=== PATIENT | female | born 1965 | race Caucasian/White ===

== ENCOUNTER → 2023-08-20 | Emergency (ER) | payer BC ==
[~2023-08-20] MED LIST: DICYCLOMINE HCL 10 MG CAP ONE; FAMOTIDINE 20 MG/2 ML VIAL IV ONE; KETOROLAC 30 MG/ML INJ ONE; LOPERAMIDE HCL 2 MG CAPSULE ONE; METOCLOPRAMIDE 10 MG/2mL INJ ONE; NA CHLORIDE 0.9% 1,000 ML ONE; ONDANSETRON 4 MG/2 ML VIAL ONE
--- OUTSIDE RECORDS SUMMARY | 2023-08-20 04:28 | XMS REPORT | Continuity of Care Document ---
Author Name Unknown Address [address] [facility] [address] [place] [address] [facility] Address [address] [facility] [address] [place] [address] Care Team Providers Care [employer] Name Role Phone JEB ARORA Primary Care Physician JEB Milan Attending Clinician Jeb Cowan MD Attending Clinician + [phone] Karen Chatman Attending Clinician [phone] Unknown, Attending Attending Clinician Unavailab KAREN Hawkins Attending Clinician Unavailable Doctor Unassigned, Provencal Attending Clinician U navailable Lab, Ang - Db Attending Clinician Unavailable Haven Fragoso Attending Clinician [phone] CYNDEE SOARES Attending Clinician Unavailable Cyndee Chadwick Attending Clinician [phone] HAVEN YBARRA Attending Clinician Unavailable ANA ANGUIANO Attending Clinician Unavailable Kanchan Bojorquez Attending Clinician [phone] Ana Arambula Attending Clinician [phone] Sherin Delgadillo RN Attending Clinician UnavailSujata Barrios Attending Clinician [phone] SUJATA FOUNTAIN Attending Clinician Unavailable LILI OLIVIA Attending Clinician Unavailable Lili Olivia MD Attending Clinician [phone] TALIB CHANG Attending Clinician Unavailjose alejandro Post PT, Ayde Attending Clinician Unavailab Walter GRANT, Dave Mack Attending Clinician [phone] DAVE SHANNON Attending Clinician UnavailJonah Hart PT, Kiara Attending Clinician Un available Yves Fernandez Attending Clinician [phone] YVES COLEMAN Attending Clinician Unavailable Ryann Nguyen Attending Clinician [phone] RYANN NGUYEN Attending Clinician Unavailable Pob, Adc Lab Main Attending Clinician UnavailJEB Méndez Admitting Clinician LILI Felton Admitting Clinician Unavailable Payers Payer Name Policy Type Policy Number Effective Date Expirati on Date Source [facility] [id number] 2017 00:00:00 Problems Condition Name Condition Details Condition Category Status Onset Date Resolution Date Last Treatment Date Treating Clinician Comments Source Hemorrhagi c cystitis Hemorrhagi c cystitis Disease Active 2021-07 00:00: 00 [facility] No known active problems No known active problems Disease [facility] Allergies, Adverse Reactions, Alerts Allergy Name Allergy Type Status Severity Reaction(s) Onset Date Inactive Date Treating Clinician Comments Source Codeine Propensi ty to adverse reaction s Active Dizziness 01-04 00:00: 00 [facility] CODEINE DRUG INGREDI Active Dizziness 01-04 00:00: 00 [facility] Social History Social Habit Start Date Stop Date Quantity Comments [facility] Alcohol Comment [place] [facility] History SDOH Alcohol Std Drinks [facility] History SDOH Alcohol Binge [facility] Alcohol intake 2023-07-17 00:00:00 2023-07-17 00:00:00 Lifetime non-drinker (finding) [facility] History of Social function 2023-05-29 00:00:00 2023-05-29 00:00:00 [facility] Exposure to SARS-CoV-2 (event) 2022-11-04 00:00:00 2022-11-14 07:28:00 Not sure [facility] Tobacco use and exposure 2022-04-26 00:00:00 2022-04-26 00:00:00 Smokeless tobacco non-user [facility] History SDOH Alcohol Frequency 2019-04-24 00:00:00 2019-04-24 00:00:00 1 [facility] Sex Ass[birth year] At 1965 00:00:00 1965 00:00:00 [facility] Smoking Status Start Date Stop Date Source Never smoked tobacco [facility] Medications Ordered Medication Name Filled Medication Name Start Date Stop Date Current Medication? Ordering Clinician Indication Dosage Frequency Signature (SIG) Comments Components Source azithromyci n 500 mg tablet 07-17 00:00: 00 Yes [id number] 500mg Take 1 tablet by mouth in the morning. [facility] azithromyci n 500 mg tablet 07-17 00:00: 00 Yes [id number] 500mg Take 1 tablet by mouth in the morning. [facility] benzonatate 200 mg capsule 2022-07 00:00: 00 07-17 05:59 :00 Yes [id number] 200mg Take 1 capsule by mouth 3 (three) times daily as needed for Cough for up to 10 days. [facility] metoprolol succinate XL 50 mg 24 hr tablet 2022-07 16:07: 05-29 00:00 :00 No 50mg Take 1 tablet by mouth in the morning. [facility] metoprolol succinate XL 50 mg 24 hr tablet 2022-07 16:07: 05-29 00:00 :00 No 50mg Take 1 tablet by mouth in the morning. [facility] metoprolol succinate XL 50 mg 24 hr tablet 2022-07 16:07: 05-29 00:00 :00 No 50mg Take 1 tablet by mouth in the morning. [facility] RABEprazole 20 mg tablet 2022-07 00:00: 00 Yes [id number] 20mg Take 1 tablet by mouth in the morning. [facility] metoprolol succinate XL 50 mg 24 hr tablet 2022-07 00:00: 00 Yes [id number] 50mg Take 1 tablet by mouth in the morning. [facility] FLUoxetine 20 mg capsule 2022-07 00:00: 00 Yes [id number] 20mg Take 1 capsule by mouth in the morning. [facility] atorvastati n 10 mg tablet 2022-07 00:00: 00 Yes [id number] 10mg Take 1 tablet by mouth at bedtime. [facility] RABEprazole 20 mg tablet 2022-07 00:00: 00 Yes [id number] 20mg Take 1 tablet by mouth in the morning. [facility] metoprolol succinate XL 50 mg 24 hr tablet 2022-07 00:00: 00 Yes [id number] 50mg Take 1 tablet by mouth in the morning. [facility] FLUoxetine 20 mg capsule 2022-07 00:00: 00 Yes [id number] 20mg Take 1 capsule by mouth in the morning. [facility] atorvastati n 10 mg tablet 2022-07 00:00: 00 Yes [id number] 10mg Take 1 tablet by mouth at bedtime. [facility] RABEprazole 20 mg tablet 2022-07 00:00: 00 Yes [id number] 20mg Take 1 tablet by mouth in the morning. [facility] metoprolol succinate XL 50 mg 24 hr tablet 2022-07 00:00: 00 Yes [id number] 50mg Take 1 tablet by mouth in the morning. [facility] FLUoxetine 20 mg capsule 2022-07 00:00: 00 Yes [id number] 20mg Take 1 capsule by mouth in the morning. [facility] atorvastati n 10 mg tablet 2022-07 00:00: 00 Yes [id number] 10mg Take 1 tablet by mouth at bedtime. [facility] RABEprazole 20 mg tablet 2022-07 00:00: 00 Yes [id number] 20mg Take 1 tablet by mouth in the morning. [facility] metoprolol succinate XL 50 mg 24 hr tablet 2022-07 00:00: 00 Yes [id number] 50mg Take 1 tablet by mouth in the morning. [facility] FLUoxetine 20 mg capsule 2022-07 00:00: 00 Yes [id number] 20mg Take 1 capsule by mouth in the morning. [facility] atorvastati n 10 mg tablet 2022-07 00:00: 00 Yes [id number] 10mg Take 1 tablet by mouth at bedtime. [facility] RABEprazole 20 mg tablet 2022-07 00:00: 00 Yes [id number] 20mg Take 1 tablet by mouth in the morning. [facility] metoprolol succinate XL 50 mg 24 hr tablet 2022-07 00:00: 00 Yes [id number] 50mg Take 1 tablet by mouth in the morning. [facility] FLUoxetine 20 mg capsule 2022-07 00:00: 00 Yes [id number] 20mg Take 1 capsule by mouth in the morning. [facility] atorvastati n 10 mg tablet 2022-07 00:00: 00 Yes [id number] 10mg Take 1 tablet by mouth at bedtime. [facility] RABEprazole 20 mg tablet 2022-07 00:00: 00 Yes [id number] 20mg Take 1 tablet by mouth in the morning. [facility] metoprolol succinate XL 50 mg 24 hr tablet 2022-07 00:00: 00 Yes [id number] 50mg Take 1 tablet by mouth in the morning. [facility] FLUoxetine 20 mg capsule 2022-07 00:00: 00 Yes [id number] 20mg Take 1 capsule by mouth in the morning. [facility] atorvastati n 10 mg tablet 2022-07 00:00: 00 Yes [id number] 10mg Take 1 tablet by mouth at bedtime. [facility] RABEprazole 20 mg tablet 2022-07 00:00: 00 Yes [id number] 20mg Take 1 tablet by mouth in the morning. [facility] metoprolol succinate XL 50 mg 24 hr tablet 2022-07 00:00: 00 Yes [id number] 50mg Take 1 tablet by mouth in the morning. [facility] FLUoxetine 20 mg capsule 2022-07 00:00: 00 Yes [id number] 20mg Take 1 capsule by mouth in the morning. [facility] atorvastati n 10 mg tablet 2022-07 00:00: 00 Yes [id number] 10mg Take 1 tablet by mouth at bedtime. [facility] RABEprazole 20 mg tablet 2022-07 00:00: 00 Yes [id number] 20mg Take 1 tablet by mouth in the morning. [facility] metoprolol succinate XL 50 mg 24 hr tablet 2022-07 00:00: 00 Yes [id number] 50mg Take 1 tablet by mouth in the morning. [facility] FLUoxetine 20 mg capsule 2022-07 00:00: 00 Yes [id number] 20mg Take 1 capsule by mouth in the morning. [facility] atorvastati n 10 mg tablet 2022-07 00:00: 00 Yes [id number] 10mg Take 1 tablet by mouth at bedtime. [facility] metoprolol succinate XL 50 mg 24 hr tablet 10-29 15:59: 48 Yes 50mg Take 1 tablet by mouth in the morning. [facility] metoprolol succinate XL 50 mg 24 hr tablet 10-29 15:59: 48 Yes 50mg Take 1 tablet by mouth in the morning. [facility] metoprolol succinate XL 50 mg 24 hr tablet 10-29 15:59: 48 Yes 50mg Take 1 tablet by mouth in the morning. [facility] NITROFURANT OIN&NIT. MACROCRYST 100 mg capsule 09-03 00:00: 00 Yes [id number] TAKE ONE CAPSULE BY MOUTH EVERY 12 HOURS FOR 5 DAYS [facility] NITROFURANT OIN&NIT. MACROCRYST 100 mg capsule 09-03 00:00: 00 Yes [id number] TAKE ONE CAPSULE BY MOUTH EVERY 12 HOURS FOR [address] [facility] OIN&NIT. MACROCRYST 100 mg capsule 0 2-20 00:00: 00 Yes [id number] TAKE ONE CAPSULE BY MOUTH EVERY 12 HOURS FOR [address] [facility] N[facility] OIN&NIT. MACROCRYST 100 mg capsule 0 20 00:00: 00 Yes [id number] TAKE ONE CAPSULE BY MOUTH EVERY 12 HOURS FOR 5 DAYS [facility] NIT[facility] OIN&NIT. MACROCRYST 100 mg capsule 0 09-03 00:00: 00 Yes [id number] TAKE ONE CAPSULE BY MOUTH EVERY 12 HOURS FOR 5 DAYS [facility] N[facility] OIN&NIT. MACROCRYST 100 mg capsule 09-03 00:00: 00 Yes [id number] TAKE ONE CAPSULE BY MOUTH EVERY 12 HOURS FOR [address] [facility] NITROFUR[facility] OIN&NIT. MACROCRYST 100 mg capsule 09-03 00:00: 00 05-29 00:00 :00 No [id number] TAKE ONE CAPSULE BY MOUTH EVERY 12 HOURS FOR 5 DAYS [facility] NITROFURANT OIN&NIT. MACROCRYST 100 mg capsule 09-03 00:00: 00 05-29 00:00 :00 No [id number] TAKE ONE CAPSULE BY MOUTH EVERY 12 HOURS FOR 5 DAYS [facility] NITROFURANT OIN&NIT. MACROCRYST 100 mg capsule 09-03 00:00: 00 05-29 00:00 :00 No [id number] TAKE ONE CAPSULE BY MOUTH EVERY 12 HOURS FOR 5 DAYS [facility] mometasone 0.1 % cream 0 08-02 00:00: 00 Yes [id number] Apply to area(s) daily. [facility] mometasone 0.1 % cream 0 08-02 00:00: 00 Yes [id number] Apply to area(s) daily. [facility] % cream 2022-0 08-02 00:00: 00 Yes [id number] Apply to area(s) daily. [facility] mometasone 0.1 % cream 2023-0 1-19 00:00: 00 Yes [id number] Apply to area(s) daily. [facility] mometasone 0.1 % cream 2023-0 -19 00:00: 00 Yes [id number] Apply to area(s) daily. [facility] mometasone 0.1 % cream 3-0 -19 00:00: 00 Yes [id number] Apply to area(s) daily. [facility] mometasone 0.1 % cream 3-0 -19 00:00: 00 Yes [id number] Apply to area(s) daily. [facility] mometasone 0.1 % cream 3-0 -19 00:00: 00 Yes [id number] Apply to area(s) daily. [facility] mometasone 0.1 % cream 3-0 -19 00:00: 00 Yes [id number] Apply to area(s) daily. [facility] mometasone 0.1 % cream 3-0 19 00:00: 00 Yes [id number] Apply to area(s) daily. [facility] mometasone 0.1 % cream 3-0 -19 00:00: 00 Yes [id number] Apply to area(s) daily. [facility] mometasone 0.1 % cream 3-0 -19 00:00: 00 Yes [id number] Apply to area(s) daily. [facility] mometasone 0.1 % cream 3-0 -19 00:00: 00 Yes [id number] Apply to area(s) daily. [facility] mometasone 0.1 % cream 3-0 -19 00:00: 00 Yes [id number] Apply to area(s) daily. [facility] mometasone 0.1 % cream 2023-0 1-19 00:00: 00 Yes [id number] Apply to area(s) daily. [facility] mometasone 0.1 % cream 2023-0 1-19 00:00: 00 Yes [id number] Apply to area(s) daily. [facility] mometasone 0.1 % cream 08-02 00:00: 00 Yes [id number] Apply to area(s) daily. [facility] mometasone 0.1 % cream 08-02 00:00: 00 Yes [id number] Apply to area(s) daily. [facility] Nitrofurant oin&Nit. Macrocryst (MACROBID) 100 mg capsule 2021-07 00:00: 00 06-21 05:59 :00 No [id number] 100mg Take 1 capsule by mouth every 12 (twelve) hours for 5 days. [facility] Nitrofurant oin&Nit. Macrocryst (MACROBID) 100 mg capsule 2021-07 00:00: 00 06-21 05:59 :00 No [id number] 100mg Take 1 capsule by mouth every 12 (twelve) hours for 5 days. [facility] cefUROXime 250 mg tablet 2021-07 00:00: 00 Yes [id number] 250mg Take 1 tablet by mouth in the morning and 1 tablet in the evening. [facility] atorvastati n 10 mg tablet 2021-07 00:00: 00 Yes [id number] 10mg Take 1 tablet by mouth at bedtime. [facility] FLUoxetine 20 mg capsule 2021-07 00:00: 00 Yes [id number] 20mg Take 1 capsule by mouth in the morning. [facility] metoprolol succinate XL 25 mg 24 hr tablet 2021-07 00:00: 00 Yes [id number] 25mg Take 1 tablet by mouth in the morning. [facility] RABEprazole 20 mg tablet 2021-07 00:00: 00 Yes [id number] 20mg Take 1 tablet by mouth in the morning. [facility] cefUROXime 250 mg tablet 2021-07 00:00: 00 Yes [id number] 250mg Take 1 tablet by mouth in the morning and 1 tablet in the evening. [facility] atorvastati n 10 mg tablet 2021-07 00:00: 00 Yes [id number] 10mg Take 1 tablet by mouth at bedtime. [facility] FLUoxetine 20 mg capsule 2021-07 00:00: 00 Yes [id number] 20mg Take 1 capsule by mouth in the morning. [facility] metoprolol succinate XL 25 mg 24 hr tablet 2021-07 00:00: 00 Yes [id number] 25mg Take 1 tablet by mouth in the morning. [facility] RABEprazole 20 mg tablet 2021-07 00:00: 00 Yes [id number] 20mg Take 1 tablet by mouth in the morning. [facility] cefUROXime 250 mg tablet 2021-07 00:00: 00 Yes [id number] 250mg Take 1 tablet by mouth in the morning and 1 tablet in the evening. [facility] atorvastati n 10 mg tablet 2021-07 00:00: 00 Yes [id number] 10mg Take 1 tablet by mouth at bedtime. [facility] FLUoxetine 20 mg capsule 2021-07 00:00: 00 Yes [id number] 20mg Take 1 capsule by mouth in the morning. [facility] metoprolol succinate XL 25 mg 24 hr tablet 2021-07 00:00: 00 Yes [id number] 25mg Take 1 tablet by mouth in the morning. [facility] RABEprazole 20 mg tablet 2021-07 00:00: 00 Yes [id number] 20mg Take 1 tablet by mouth in the morning. [facility] cefUROXime 250 mg tablet 2021-07 00:00: 00 Yes [id number] 250mg Take 1 tablet by mouth in the morning and 1 tablet in the evening. [facility] atorvastati n 10 mg tablet 2021-07 00:00: 00 Yes [id number] 10mg Take 1 tablet by mouth at bedtime. [facility] FLUoxetine 20 mg capsule 2021-07 00:00: 00 Yes [id number] 20mg Take 1 capsule by mouth in the morning. [facility] metoprolol succinate XL 25 mg 24 hr tablet 2021-07 00:00: 00 Yes [id number] 25mg Take 1 tablet by mouth in the morning. [facility] RABEprazole 20 mg tablet 2021-07 00:00: 00 Yes [id number] 20mg Take 1 tablet by mouth in the morning. [facility] cefUROXime 250 mg tablet 2021-07 00:00: 00 Yes [id number] 250mg Take 1 tablet by mouth in the morning and 1 tablet in the evening. [facility] atorvastati n 10 mg tablet 2021-07 00:00: 00 Yes [id number] 10mg Take 1 tablet by mouth at bedtime. [facility] FLUoxetine 20 mg capsule 2021-07 00:00: 00 Yes [id number] 20mg Take 1 capsule by mouth in the morning. [facility] metoprolol succinate XL 25 mg 24 hr tablet 2021-07 00:00: 00 Yes [id number] 25mg Take 1 tablet by mouth in the morning. [facility] RABEprazole 20 mg tablet 2021-07 00:00: 00 Yes [id number] 20mg Take 1 tablet by mouth in the morning. [facility] cefUROXime 250 mg tablet 2021-07 00:00: 00 Yes [id number] 250mg Take 1 tablet by mouth in the morning and 1 tablet in the evening. [facility] atorvastati n 10 mg tablet 2021-07 00:00: 00 Yes [id number] 10mg Take 1 tablet by mouth at bedtime. [facility] FLUoxetine 20 mg capsule 2021-07 00:00: 00 Yes [id number] 20mg Take 1 capsule by mouth in the morning. [facility] metoprolol succinate XL 25 mg 24 hr tablet 2021-07 00:00: 00 Yes [id number] 25mg Take 1 tablet by mouth in the morning. [facility] RABEprazole 20 mg tablet 2021-07 00:00: 00 Yes [id number] 20mg Take 1 tablet by mouth in the morning. [facility] cefUROXime 250 mg tablet 2021-07 00:00: 00 Yes [id number] 250mg Take 1 tablet by mouth in the morning and 1 tablet in the evening. [facility] atorvastati n 10 mg tablet 2021-07 00:00: 00 Yes [id number] 10mg Take 1 tablet by mouth at bedtime. [facility] FLUoxetine 20 mg capsule 2021-07 00:00: 00 Yes [id number] 20mg Take 1 capsule by mouth in the morning. [facility] metoprolol succinate XL 25 mg 24 hr tablet 2021-07 00:00: 00 Yes [id number] 25mg Take 1 tablet by mouth in the morning. [facility] RABEprazole 20 mg tablet 2021-07 00:00: 00 Yes [id number] 20mg Take 1 tablet by mouth in the morning. [facility] atorvastati n 10 mg tablet 2021-07 00:00: 00 Yes [id number] 10mg Take 1 tablet by mouth at bedtime. [facility] FLUoxetine 20 mg capsule 2021-07 00:00: 00 Yes [id number] 20mg Take 1 capsule by mouth in the morning. [facility] metoprolol succinate XL 25 mg 24 hr tablet 2021-07 00:00: 00 Yes [id number] 25mg Take 1 tablet by mouth in the morning. [facility] RABEprazole 20 mg tablet 2021-07 00:00: 00 Yes [id number] 20mg Take 1 tablet by mouth in the morning. [facility] atorvastati n 10 mg tablet 2021-07 00:00: 00 Yes [id number] 10mg Take 1 tablet by mouth at bedtime. [facility] FLUoxetine 20 mg capsule 2021-07 00:00: 00 Yes [id number] 20mg Take 1 capsule by mouth in the morning. [facility] metoprolol succinate XL 25 mg 24 hr tablet 2021-07 00:00: 00 Yes [id number] 25mg Take 1 tablet by mouth in the morning. [facility] RABEprazole 20 mg tablet 2021-07 00:00: 00 Yes [id number] 20mg Take 1 tablet by mouth in the morning. [facility] atorvastati n 10 mg tablet 2021-07 00:00: 00 Yes [id number] 10mg Take 1 tablet by mouth at bedtime. [facility] FLUoxetine 20 mg capsule 2021-07 00:00: 00 Yes [id number] 20mg Take 1 capsule by mouth in the morning. [facility] metoprolol succinate XL 25 mg 24 hr tablet 2021-07 00:00: 00 Yes [id number] 25mg Take 1 tablet by mouth in the morning. [facility] RABEprazole 20 mg tablet 2021-07 00:00: 00 Yes [id number] 20mg Take 1 tablet by mouth in the morning. [facility] atorvastati n 10 mg tablet 2021-07 00:00: 00 Yes [id number] 10mg Take 1 tablet by mouth at bedtime. [facility] FLUoxetine 20 mg capsule 2021-07 00:00: 00 Yes [id number] 20mg Take 1 capsule by mouth in the morning. [facility] metoprolol succinate XL 25 mg 24 hr tablet 2021-07 00:00: 00 Yes [id number] 25mg Take 1 tablet by mouth in the morning. [facility] RABEprazole 20 mg tablet 2021-07 00:00: 00 Yes [id number] 20mg Take 1 tablet by mouth in the morning. [facility] atorvastati n 10 mg tablet 2021-07 00:00: 00 Yes [id number] 10mg Take 1 tablet by mouth at bedtime. [facility] FLUoxetine 20 mg capsule 2021-07 00:00: 00 Yes [id number] 20mg Take 1 capsule by mouth in the morning. [facility] metoprolol succinate XL 25 mg 24 hr tablet 2021-07 0 00:00: 00 Yes [id number] 25mg Take 1 tablet by mouth in the morning. [facility] RABEprazole 20 mg tablet 2021-07 00:00: 00 Yes [id number] 20mg Take 1 tablet by mouth in the morning. [facility] atorvastati n 10 mg tablet 2021-07 0 00:00: 00 Yes [id number] 10mg Take 1 tablet by mouth at bedtime. [facility] FLUoxetine 20 mg capsule 2021-07 00:00: 00 Yes [id number] 20mg Take 1 capsule by mouth in the morning. [facility] metoprolol succinate XL 25 mg 24 hr tablet 2021-07 00:00: 00 Yes [id number] 25mg Take 1 tablet by mouth in the morning. [facility] RABEprazole 20 mg tablet 2021-07 00:00: 00 Yes [id number] 20mg Take 1 tablet by mouth in the morning. [facility] atorvastati n 10 mg tablet 2021-07 00:00: 00 Yes [id number] 10mg Take 1 tablet by mouth at bedtime. [facility] FLUoxetine 20 mg capsule 2021-07 00:00: 00 Yes [id number] 20mg Take 1 capsule by mouth in the morning. [facility] RABEprazole 20 mg tablet 2021-07 0 00:00: 00 Yes [id number] 20mg Take 1 tablet by mouth in the morning. [facility] atorvastati n 10 mg tablet 2021-07 00:00: 00 Yes [id number] 10mg Take 1 tablet by mouth at bedtime. [facility] FLUoxetine 20 mg capsule 2021-07 0 00:00: 00 Yes [id number] 20mg Take 1 capsule by mouth in the morning. [facility] RABEprazole 20 mg tablet 2021-07 0 00:00: 00 Yes [id number] 20mg Take 1 tablet by mouth in the morning. [facility] atorvastati n 10 mg tablet 2021- 0-13 00:00: 00 Yes [id number] 10mg Take 1 tablet by mouth at bedtime. [facility] FLUoxetine 20 mg capsule 2021- 0-13 00:00: 00 Yes [id number] 20mg Take 1 capsule by mouth in the morning. [facility] RABEprazole 20 mg tablet 2021-07 0-13 00:00: 00 Yes [id number] 20mg Take 1 tablet by mouth in the morning. [facility] atorvastati n 10 mg tablet 2021- 0-13 00:00: 00 05-29 00:00 :00 No [id number] 10mg Take 1 tablet by mouth at bedtime. [facility] FLUoxetine 20 mg capsule 2021-07 0-13 00:00: 00 05-29 00:00 :00 No [id number] 20mg Take 1 capsule by mouth in the morning. [facility] RABEprazole 20 mg tablet 2021-07 0-13 00:00: 00 05-29 00:00 :00 No [id number] 20mg Take 1 tablet by mouth in the morning. [facility] atorvastati n 10 mg tablet 2021-07 0-13 00:00: 00 05-29 00:00 :00 No [id number] 10mg Take 1 tablet by mouth at bedtime. [facility] FLUoxetine 20 mg capsule 2021-07 0-13 00:00: 00 05-29 00:00 :00 No [id number] 20mg Take 1 capsule by mouth in the morning. [facility] RABEprazole 20 mg tablet 2021- 0-13 00:00: 00 05-29 00:00 :00 No [id number] 20mg Take 1 tablet by mouth in the morning. [facility] atorvastati n 10 mg tablet 2021- 0-13 00:00: 00 05-29 00:00 :00 No [id number] 10mg Take 1 tablet by mouth at bedtime. [facility] FLUoxetine 20 mg capsule 2021-07 0-13 00:00: 00 05-29 00:00 :00 No [id number] 20mg Take 1 capsule by mouth in the morning. [facility] RABEprazole 20 mg tablet 2021-07 0-13 00:00: 00 05-29 00:00 :00 No [id number] 20mg Take 1 tablet by mouth in the morning. [facility] metoprolol succinate XL 25 mg 24 hr tablet 2021-07 0-13 00:00: 00 10-29 00:00 :00 No [id number] 25mg Take 1 tablet by mouth in the morning. [facility] metoprolol succinate XL 25 mg 24 hr tablet 2021-07 0- 00:00: 00 10-29 00:00 :00 No [id number] 25mg Take 1 tablet by mouth in the morning. [facility] cefUROXime 250 mg tablet 2021-07 0 00:00: 00 08-02 00:00 :00 No [id number] 250mg Take 1 tablet by mouth in the morning and 1 tablet in the evening. [facility] cefUROXime 250 mg tablet 2021-07 00:00: 00 08-02 00:00 :00 No [id number] 250mg Take 1 tablet by mouth in the morning and 1 tablet in the evening. [facility] fluticasone propionate (FLONASE ALLERGY RELIEF) 50 mcg/actuati on nasal spray 01-26 00:00: 00 Yes [id number] 2{spray } Use 2 Sprays in each nostril in the morning. [facility] fluticasone propionate (FLONASE ALLERGY RELIEF) 50 mcg/actuati on nasal spray 01-26 00:00: 00 Yes [id number] 2{spray } Use 2 Sprays in each nostril in the morning. [facility] fluticasone propionate (FLONASE ALLERGY RELIEF) 50 mcg/actuati on nasal spray 01-26 00:00: 00 Yes [id number] 2{spray } Use 2 Sprays in each nostril in the morning. [facility] fluticasone propionate (FLONASE ALLERGY RELIEF) 50 mcg/actuati on nasal spray 15 00:00: 00 Yes [id number] 2{spray } Use 2 Sprays in each nostril in the morning. [facility] fluticasone propionate (FLONASE ALLERGY RELIEF) 50 mcg/actuati on nasal spray 01-26 00:00: 00 Yes [id number] 2{spray } Use 2 Sprays in each nostril in the morning. [facility] fluticasone propionate (FLONASE ALLERGY RELIEF) 50 mcg/actuati on nasal spray 01-26 00:00: 00 Yes [id number] 2{spray } Use 2 Sprays in each nostril in the morning. [facility] fluticasone propionate (FLONASE ALLERGY RELIEF) 50 mcg/actuati on nasal spray 01-26 00:00: 00 Yes [id number] 2{spray } Use 2 Sprays in each nostril in the morning. [facility] fluticasone propionate (FLONASE ALLERGY RELIEF) 50 mcg/actuati on nasal spray 01-26 00:00: 00 Yes [id number] 2{spray } Use 2 Sprays in each nostril in the morning. [facility] fluticasone propionate (FLONASE ALLERGY RELIEF) 50 mcg/actuati on nasal spray 01-26 00:00: 00 Yes [id number] 2{spray } Use 2 Sprays in each nostril in the morning. [facility] fluticasone propionate (FLONASE ALLERGY RELIEF) 50 mcg/actuati on nasal spray 15 00:00: 00 Yes [id number] 2{spray } Use 2 Sprays in each nostril in the morning. [facility] fluticasone propionate (FLONASE ALLERGY RELIEF) 50 mcg/actuati on nasal spray 15 00:00: 00 Yes [id number] 2{spray } Use 2 Sprays in each nostril in the morning. [facility] fluticasone propionate (FLONASE ALLERGY RELIEF) 50 mcg/actuati on nasal spray 15 00:00: 00 Yes [id number] 2{spray } Use 2 Sprays in each nostril in the morning. [facility] fluticasone propionate (FLONASE ALLERGY RELIEF) 50 mcg/actuati on nasal spray 15 00:00: 00 Yes [id number] 2{spray } Use 2 Sprays in each nostril in the morning. [facility] fluticasone propionate (FLONASE ALLERGY RELIEF) 50 mcg/actuati on nasal spray 01-26 00:00: 00 Yes [id number] 2{spray } Use 2 Sprays in each nostril in the morning. [facility] fluticasone propionate (FLONASE ALLERGY RELIEF) 50 mcg/actuati on nasal spray 01-26 00:00: 00 Yes [id number] 2{spray } Use 2 Sprays in each nostril in the morning. [facility] fluticasone propionate (FLONASE ALLERGY RELIEF) 50 mcg/actuati on nasal spray 15 00:00: 00 Yes [id number] 2{spray } Use 2 Sprays in each nostril in the morning. [facility] fluticasone propionate (FLONASE ALLERGY RELIEF) 50 mcg/actuati on nasal spray 15 00:00: 00 Yes [id number] 2{spray } Use 2 Sprays in each nostril in the morning. [facility] fluticasone propionate (FLONASE ALLERGY RELIEF) 50 mcg/actuati on nasal spray 15 00:00: 00 05-29 00:00 :00 No [id number] 2{spray } Use 2 Sprays in each nostril in the morning. [facility] fluticasone propionate (FLONASE ALLERGY RELIEF) 50 mcg/actuati on nasal spray 15 00:00: 00 05-29 00:00 :00 No [id number] 2{spray } Use 2 Sprays in each nostril in the morning. [facility] fluticasone propionate (FLONASE ALLERGY RELIEF) 50 mcg/actuati on nasal spray 01-26 00:00: 00 05-29 00:00 :00 No [id number] 2{spray } Use 2 Sprays in each nostril in the morning. [facility] montelukast (SINGULAIR) 10 mg tablet 01-26 00:00: 00 02-26 04:59 :00 No [id number] 10mg Take 1 tablet by mouth in the morning for 30 days. [facility] molnupiravi r 200 mg capsule 01-18 00:00: 00 Yes [id number] 800mg Take 4 capsules by mouth every 12 (twelve) hours. [facility] molnupiravi r 200 mg capsule 2021-0 01-18 00:00: 00 Yes [id number] 800mg Take 4 capsules by mouth every 12 (twelve) hours. [facility] molnupiravi r 200 mg capsule 2021-0 01-18 00:00: 00 Yes [id number] 800mg Take 4 capsules by mouth every 12 (twelve) hours. [facility] molnupiravi r 200 mg capsule 0 01-18 00:00: 00 Yes [id number] 800mg Take 4 capsules by mouth every 12 (twelve) hours. [facility] molnupiravi r 200 mg capsule 2021-0 01-18 00:00: 00 Yes [id number] 800mg Take 4 capsules by mouth every 12 (twelve) hours. [facility] molnupiravi r 200 mg capsule 2021-0 01-18 00:00: 00 Yes [id number] 800mg Take 4 capsules by mouth every 12 (twelve) hours. [facility] molnupiravi r 200 mg capsule 2021-0 01-18 00:00: 00 04-26 00:00 :00 No [id number] 800mg Take 4 capsules by mouth every 12 (twelve) hours. [facility] molnupiravi r 200 mg capsule 01-18 00:00: 00 04-26 00:00 :00 No [id number] 800mg Take 4 capsules by mouth every 12 (twelve) hours. [facility] molnupiravi r 200 mg capsule 01-18 00:00: 00 04-26 00:00 :00 No [id number] 800mg Take 4 capsules by mouth every 12 (twelve) hours. [facility] molnupiravi r 200 mg capsule 01-18 00:00: 00 04-26 00:00 :00 No [id number] 800mg Take 4 capsules by mouth every 12 (twelve) hours. [facility] iopamidol (ISOVUE 370-500 mL) injection 70 mL 01-09 20:30: 00 01-09 20:30 :00 No [id number] 70mL 70 mL, Intravenou s, ONCE, 1 dose, On Sat01/09/22 at 1545, Routine [facility] ketorolac 10 mg tablet 12-27 00:00: 00 Yes [id number] 10mg Take 1 tablet by mouth every 6 (six) hours as needed (pain). [facility] ketorolac 10 mg tablet 15 00:00: 00 Yes [id number] 10mg Take 1 tablet by mouth every 6 (six) hours as needed (pain). [facility] ketorolac 10 mg tablet 0 15 00:00: 00 Yes [id number] 10mg Take 1 tablet by mouth every 6 (six) hours as needed (pain). [facility] ketorolac 10 mg tablet 0 15 00:00: 00 Yes [id number] 10mg Take 1 tablet by mouth every 6 (six) hours as needed (pain). [facility] ketorolac 10 mg tablet 2021-0 -15 00:00: 00 Yes [id number] 10mg Take 1 tablet by mouth every 6 (six) hours as needed (pain). [facility] ketorolac 10 mg tablet 2022-0 6-15 00:00: 00 Yes [id number] 10mg Take 1 tablet by mouth every 6 (six) hours as needed (pain). [facility] ketorolac 10 mg tablet 2022-0 6-15 00:00: 00 Yes [id number] 10mg Take 1 tablet by mouth every 6 (six) hours as needed (pain). [facility] ketorolac 10 mg tablet 2022-0 6-15 00:00: 00 Yes [id number] 10mg Take 1 tablet by mouth every 6 (six) hours as needed (pain). [facility] ketorolac 10 mg tablet 2-0 6-15 00:00: 00 Yes [id number] 10mg Take 1 tablet by mouth every 6 (six) hours as needed (pain). [facility] 2022-0 6-15 00:00: 00 Yes [id number] 10mg Take 1 tablet by mouth every 6 (six) hours as needed (pain). [facility] ketorolac 10 mg tablet 2-0 6-15 00:00: 00 Yes [id number] 10mg Take 1 tablet by mouth every 6 (six) hours as needed (pain). [facility] mg tablet 2-0 6-15 00:00: 00 Yes [id number] 10mg Take 1 tablet by mouth every 6 (six) hours as needed (pain). [facility] mg tablet 2022-0 6-15 00:00: 00 Yes [id number] 10mg Take 1 tablet by mouth every 6 (six) hours as needed (pain). [facility] mg tablet 2022-0 6-15 00:00: 00 Yes [id number] 10mg Take 1 tablet by mouth every 6 (six) hours as needed (pain). [facility] ketorolac 10 mg tablet 2022-0 6-15 00:00: 00 Yes [id number] 10mg Take 1 tablet by mouth every 6 (six) hours as needed (pain). [facility] ketorolac 10 mg tablet 2022-0 6-15 00:00: 00 Yes [id number] 10mg Take 1 tablet by mouth every 6 (six) hours as needed (pain). [facility] ketorolac 10 mg tablet 2-0 6-15 00:00: 00 Yes [id number] 10mg Take 1 tablet by mouth every 6 (six) hours as needed (pain). [facility] ketorolac 10 mg tablet 2-0 6-15 00:00: 00 Yes [id number] 10mg Take 1 tablet by mouth every 6 (six) hours as needed (pain). [facility] mg tablet 2-0 6-15 00:00: 00 Yes [id number] 10mg Take 1 tablet by mouth every 6 (six) hours as needed (pain). [facility] 10 mg tablet 2-0 6-15 00:00: 00 Yes [id number] 10mg Take 1 tablet by mouth every 6 (six) hours as needed (pain). [facility] mg tablet 2-0 6-15 00:00: 00 Yes [id number] 10mg Take 1 tablet by mouth every 6 (six) hours as needed (pain). [facility] ketorolac 10 mg tablet 2021-0 6-15 00:00: 00 Yes [id number] 10mg Take 1 tablet by mouth every 6 (six) hours as needed (pain). [facility] ketorolac 10 mg tablet 2-0 6-15 00:00: 00 Yes [id number] 10mg Take 1 tablet by mouth every 6 (six) hours as needed (pain). [facility] mg tablet 2-0 6-15 00:00: 00 Yes [id number] 10mg Take 1 tablet by mouth every 6 (six) hours as needed (pain). [facility] mg tablet 2-0 6-15 00:00: 00 Yes [id number] 10mg Take 1 tablet by mouth every 6 (six) hours as needed (pain). [facility] ketorolac 10 mg tablet 2-0 6-15 00:00: 00 11-15 00:00 :00 No [id number] 10mg Take 1 tablet by mouth every 6 (six) hours as needed (pain). [facility] ketorolac 10 mg tablet 6-15 00:00: 00 05-29 00:00 :00 No [id number] 10mg Take 1 tablet by mouth every 6 (six) hours as needed (pain). [facility] ketorolac 10 mg tablet 6-15 00:00: 00 05-29 00:00 :00 No [id number] 10mg Take 1 tablet by mouth every 6 (six) hours as needed (pain). [facility] RABEprazole 20 mg tablet 2020-07 00:00: 00 Yes [id number] 20mg Take 1 tablet by mouth daily. [facility] metoprolol succinate XL 25 mg 24 hr tablet 2020-07 00:00: 00 Yes [id number] 25mg Take 1 tablet by mouth daily. [facility] FLUoxetine 20 mg capsule 2020-07 00:00: 00 Yes [id number] 20mg Take 1 capsule by mouth daily. [facility] atorvastati n 10 mg tablet 2020-07 00:00: 00 Yes [id number] 10mg Take 1 tablet by mouth at bedtime. [facility] mupirocin 2 % ointment 2020-07 00:00: 00 Yes [id number] Apply to area(s) 3 (three) times daily. [facility] RABEprazole 20 mg tablet 2020-07 00:00: 00 Yes [id number] 20mg Take 1 tablet by mouth daily. [facility] metoprolol succinate XL 25 mg 24 hr tablet 2020-07 00:00: 00 Yes [id number] 25mg Take 1 tablet by mouth daily. [facility] FLUoxetine 20 mg capsule 2020-07 00:00: 00 Yes [id number] 20mg Take 1 capsule by mouth daily. [facility] atorvastati n 10 mg tablet 2020-07 00:00: 00 Yes [id number] 10mg Take 1 tablet by mouth at bedtime. [facility] mupirocin 2 % ointment 2020-07 0 00:00: 00 Yes [id number] Apply to area(s) 3 (three) times daily. [facility] RABEprazole 20 mg tablet 2020-07 0 00:00: 00 Yes [id number] 20mg Take 1 tablet by mouth daily. [facility] metoprolol succinate XL 25 mg 24 hr tablet 2020-07 0 00:00: 00 Yes [id number] 25mg Take 1 tablet by mouth daily. [facility] FLUoxetine 20 mg capsule 2020-07 00:00: 00 Yes [id number] 20mg Take 1 capsule by mouth daily. [facility] atorvastati n 10 mg tablet 2020-07 00:00: 00 Yes [id number] 10mg Take 1 tablet by mouth at bedtime. [facility] mupirocin 2 % ointment 2020-07 00:00: 00 Yes [id number] Apply to area(s) 3 (three) times daily. [facility] RABEprazole 20 mg tablet 2020-07 00:00: 00 Yes [id number] 20mg Take 1 tablet by mouth daily. [facility] metoprolol succinate XL 25 mg 24 hr tablet 2020-07 00:00: 00 Yes [id number] 25mg Take 1 tablet by mouth daily. [facility] FLUoxetine 20 mg capsule 2020-07 0 00:00: 00 Yes [id number] 20mg Take 1 capsule by mouth daily. [facility] atorvastati n 10 mg tablet 2020-07 00:00: 00 Yes [id number] 10mg Take 1 tablet by mouth at bedtime. [facility] mupirocin 2 % ointment 2020-07 00:00: 00 Yes [id number] Apply to area(s) 3 (three) times daily. [facility] RABEprazole 20 mg tablet 2020-07 00:00: 00 Yes [id number] 20mg Take 1 tablet by mouth daily. [facility] metoprolol succinate XL 25 mg 24 hr tablet 2020-07 00:00: 00 Yes [id number] 25mg Take 1 tablet by mouth daily. [facility] FLUoxetine 20 mg capsule 2020-07 00:00: 00 Yes [id number] 20mg Take 1 capsule by mouth daily. [facility] atorvastati n 10 mg tablet 2020-07 00:00: 00 Yes [id number] 10mg Take 1 tablet by mouth at bedtime. [facility] mupirocin 2 % ointment 2020-07 00:00: 00 Yes [id number] Apply to area(s) 3 (three) times daily. [facility] mupirocin 2 % ointment 2020-07 00:00: 00 Yes [id number] Apply to area(s) 3 (three) times daily. [facility] mupirocin 2 % ointment 2020-07 00:00: 00 Yes [id number] Apply to area(s) 3 (three) times daily. [facility] mupirocin 2 % ointment 2020-07 00:00: 00 Yes [id number] Apply to area(s) 3 (three) times daily. [facility] mupirocin 2 % ointment 2020-07 00:00: 00 Yes [id number] Apply to area(s) 3 (three) times daily. [facility] mupirocin 2 % ointment 2020-07 00:00: 00 Yes [id number] Apply to area(s) 3 (three) times daily. [facility] mupirocin 2 % ointment 2020-07 00:00: 00 Yes [id number] Apply to area(s) 3 (three) times daily. [facility] mupirocin 2 % ointment 2020-07 00:00: 00 Yes [id number] Apply to area(s) 3 (three) times daily. [facility] mupirocin 2 % ointment 2020-07 012 00:00: 00 Yes [id number] Apply to area(s) 3 (three) times daily. [facility] mupirocin 2 % ointment 2020-07 012 00:00: 00 Yes [id number] Apply to area(s) 3 (three) times daily. [facility] mupirocin 2 % ointment 2020-07 0 00:00: 00 Yes [id number] Apply to area(s) 3 (three) times daily. [facility] mupirocin 2 % ointment 2020-07 0 00:00: 00 Yes [id number] Apply to area(s) 3 (three) times daily. [facility] % oint[facility] 2020-07 0 00:00: 00 Yes [id number] Apply to area(s) 3 (three) times daily. [facility] % ointment 2020-07 0 00:00: 00 Yes [id number] Apply to area(s) 3 (three) times daily. [facility] mupirocin 2 % ointment 2020-07 0 00:00: 00 Yes [id number] Apply to area(s) 3 (three) times daily. [facility] mupirocin 2 % ointment 2020-07 0 00:00: 00 Yes [id number] Apply to area(s) 3 (three) times daily. [facility] mupirocin 2 % ointment 2020-07 0 00:00: 00 Yes [id number] Apply to area(s) 3 (three) times daily. [facility] RABEprazole 20 mg tablet 2020-07 0 00:00: 00 Yes [id number] 20mg Take 1 tablet by mouth daily. [facility] metoprolol succinate XL 25 mg 24 hr tablet 2020-07 00:00: 00 Yes [id number] 25mg Take 1 tablet by mouth daily. [facility] FLUoxetine 20 mg capsule 2020-07 0 00:00: 00 Yes [id number] 20mg Take 1 capsule by mouth daily. [facility] atorvastati n 10 mg tablet 2020-07 0 00:00: 00 Yes [id number] 10mg Take 1 tablet by mouth at bedtime. [facility] mupirocin 2 % ointment 2020-07 0 00:00: 00 Yes [id number] Apply to area(s) 3 (three) times daily. [facility] RABEprazole 20 mg tablet 2020-07 00:00: 00 Yes [id number] 20mg Take 1 tablet by mouth daily. [facility] metoprolol succinate XL 25 mg 24 hr tablet 2020-07 00:00: 00 Yes [id number] 25mg Take 1 tablet by mouth daily. [facility] FLUoxetine 20 mg capsule 2020-07 00:00: 00 Yes [id number] 20mg Take 1 capsule by mouth daily. [facility] atorvastati n 10 mg tablet 2020-07 00:00: 00 Yes [id number] 10mg Take 1 tablet by mouth at bedtime. [facility] mupirocin 2 % ointment 2020-07 00:00: 00 Yes [id number] Apply to area(s) 3 (three) times daily. [facility] RABEprazole 20 mg tablet 2020-07 00:00: 00 Yes [id number] 20mg Take 1 tablet by mouth daily. [facility] metoprolol succinate XL 25 mg 24 hr tablet 2020-07 00:00: 00 Yes [id number] 25mg Take 1 tablet by mouth daily. [facility] FLUoxetine 20 mg capsule 2020-07 00:00: 00 Yes [id number] 20mg Take 1 capsule by mouth daily. [facility] atorvastati n 10 mg tablet 2020-07 0 00:00: 00 Yes [id number] 10mg Take 1 tablet by mouth at bedtime. [facility] mupirocin 2 % ointment 2020-07 012 00:00: 00 Yes [id number] Apply to area(s) 3 (three) times daily. [facility] RABEprazole 20 mg tablet 2020-07 012 00:00: 00 Yes [id number] 20mg Take 1 tablet by mouth daily. [facility] metoprolol succinate XL 25 mg 24 hr tablet 2020-07 0 00:00: 00 Yes [id number] 25mg Take 1 tablet by mouth daily. [facility] FLUoxetine 20 mg capsule 2020-07 0 00:00: 00 Yes [id number] 20mg Take 1 capsule by mouth daily. [facility] atorvastati n 10 mg tablet 2020-07 0 00:00: 00 Yes [id number] 10mg Take 1 tablet by mouth at bedtime. [facility] mupirocin 2 % ointment 2020-07 0 00:00: 00 Yes [id number] Apply to area(s) 3 (three) times daily. [facility] mupirocin 2 % ointment 2020-07 012 00:00: 00 05-29 00:00 :00 No [id number] Apply to area(s) 3 (three) times daily. [facility] mupirocin 2 % ointment 2020-07 0 00:00: 00 05-29 00:00 :00 No [id number] Apply to area(s) 3 (three) times daily. [facility] mupirocin 2 % ointment 2020-07 012 00:00: 00 05-29 00:00 :00 No [id number] Apply to area(s) 3 (three) times daily. [facility] RABEprazole 20 mg tablet 2020-07 0-12 00:00: 00 04-26 00:00 :00 No [id number] 20mg Take 1 tablet by mouth daily. [facility] metoprolol succinate XL 25 mg 24 hr tablet 2020-07 0-12 00:00: 00 04-26 00:00 :00 No [id number] 25mg Take 1 tablet by mouth daily. [facility] FLUoxetine 20 mg capsule 2020-07 0-12 00:00: 00 04-26 00:00 :00 No [id number] 20mg Take 1 capsule by mouth daily. [facility] atorvastati n 10 mg tablet 2020-07 0-12 00:00: 00 04-26 00:00 :00 No [id number] 10mg Take 1 tablet by mouth at bedtime. [facility] RABEprazole 20 mg tablet 2020-07 0-12 00:00: 00 04-26 00:00 :00 No [id number] 20mg Take 1 tablet by mouth daily. [facility] metoprolol succinate XL 25 mg 24 hr tablet 2020-07 0-12 00:00: 00 04-26 00:00 :00 No [id number] 25mg Take 1 tablet by mouth daily. [facility] FLUoxetine 20 mg capsule 2020-07 0-12 00:00: 00 04-26 00:00 :00 No [id number] 20mg Take 1 capsule by mouth daily. [facility] atorvastati n 10 mg tablet 2020-07 0-12 00:00: 00 04-26 00:00 :00 No [id number] 10mg Take 1 tablet by mouth at bedtime. [facility] acyclovir 200 mg capsule 2020-0 8-28 00:00: 00 Yes [facility] acyclovir 200 mg capsule 2020-0 8-28 00:00: 00 Yes [facility] acyclovir 200 mg capsule 2020-0 8-28 00:00: 00 Yes [facility] acyclovir 200 mg capsule 2020-0 8-28 00:00: 00 Yes [facility] acyclovir 200 mg capsule 2020-0 8-28 00:00: 00 Yes [facility] acyclovir 200 mg capsule 2020-0 8-28 00:00: 00 Yes [facility] acyclovir 200 mg capsule 2020-0 8-28 00:00: 00 Yes [facility] acyclovir 200 mg capsule 2020-0 03-11 00:00: 00 Yes [facility] acyclovir 200 mg capsule 2020-0 03-11 00:00: 00 Yes [facility] acyclovir 200 mg capsule 2020-0 03-11 00:00: 00 Yes [facility] acyclovir 200 mg capsule 2020-0 03-11 00:00: 00 Yes [facility] acyclovir 200 mg capsule 2020-0 03-11 00:00: 00 Yes [facility] acyclovir 200 mg capsule 2020-0 03-11 00:00: 00 Yes [facility] acyclovir 200 mg capsule 2020-0 03-11 00:00: 00 Yes [facility] acyclovir 200 mg capsule 2019-0 03-11 00:00: 00 Yes [facility] acyclovir 200 mg capsule 2019-0 03-11 00:00: 00 Yes [facility] acyclovir 200 mg capsule 2019-0 03-11 00:00: 00 Yes [facility] acyclovir 200 mg capsule 2019-0 03-11 00:00: 00 Yes [facility] acyclovir 200 mg capsule 2019-0 03-11 00:00: 00 Yes [facility] acyclovir 200 mg capsule 2019-0 03-11 00:00: 00 Yes [facility] acyclovir 200 mg capsule 2019-0 03-11 00:00: 00 Yes [facility] acyclovir 200 mg capsule 2020-0 03-11 00:00: 00 Yes [facility] acyclovir 200 mg capsule 2020-0 03-11 00:00: 00 Yes [facility] acyclovir 200 mg capsule 2020-0 03-11 00:00: 00 Yes [facility] acyclovir 200 mg capsule 2020-0 03-11 00:00: 00 Yes [facility] acyclovir 200 mg capsule 2020-0 8 00:00: 00 Yes [facility] acyclovir 200 mg capsule 2020-0 8-28 00:00: 00 Yes [facility] acyclovir 200 mg capsule 2020-0 8-28 00:00: 00 Yes [facility] acyclovir 200 mg capsule 2020-0 8-28 00:00: 00 Yes [facility] acyclovir 200 mg capsule 2020-0 8-28 00:00: 00 Yes [facility] acyclovir 200 mg capsule 2020-0 8-28 00:00: 00 Yes [facility] acyclovir 200 mg capsule 2020-0 8-28 00:00: 00 Yes [facility] acyclovir 200 mg capsule 2020-0 8-28 00:00: 00 Yes [facility] acyclovir 200 mg capsule 2020-0 8-28 00:00: 00 Yes [facility] Immunizations Ordered Immunization Name Filled Immunization Name Date Status Comments Source SARS-COV-2 COVID-19 MODERNA VACCINE 2020-09-23 00:00:00 Completed [facility] SARS-COV-2 COVID-19 MODERNA VACCINE 2020-09-23 00:00:00 Completed [facility] SARS-COV-2 COVID-19 MODERNA VACCINE 2020-09-23 00:00:00 Completed [facility] SARS-COV-2 COVID-19 MODERNA VACCINE 2020-09-23 00:00:00 Completed [facility] SARS-COV-2 COVID-19 MODERNA VACCINE 2020-09-23 00:00:00 Completed [facility] SARS-COV-2 COVID-19 MODERNA 12+ YRS VACCINE 2020-09-23 00:00:00 Completed [facility] SARS-COV-2 COVID-19 MODERNA 12+ YRS VACCINE 2020-09-23 00:00:00 Completed [facility] SARS-COV-2 COVID-19 MODERNA 12+ YRS VACCINE 2020-09-23 00:00:00 Completed [facility] SARS-COV-2 COVID-19 MODERNA 12+ YRS VACCINE 2020-09-23 00:00:00 Completed [facility] SARS-COV-2 COVID-19 MODERNA 12+ YRS VACCINE 2020-09-23 00:00:00 Completed [facility] SARS-COV-2 COVID-19 MODERNA 12+ YRS VACCINE 2020-09-23 00:00:00 Completed [facility] SARS-COV-2 COVID-19 MODERNA 12+ YRS VACCINE 2020-09-23 00:00:00 Completed [facility] SARS-COV-2 COVID-19 MODERNA 12+ YRS VACCINE 2020-09-23 00:00:00 Completed [facility] SARS-COV-2 COVID-19 MODERNA 12+ YRS VACCINE 2020-09-23 00:00:00 Completed [facility] SARS-COV-2 COVID-19 MODERNA 12+ YRS VACCINE 2020-09-23 00:00:00 Completed [facility] SARS-COV-2 COVID-19 MODERNA 12+ YRS VACCINE 2020-09-23 00:00:00 Completed [facility] SARS-COV-2 COVID-19 MODERNA 12+ YRS VACCINE 2020-09-23 00:00:00 Completed [facility] SARS-COV-2 COVID-19 MODERNA 12+ YRS VACCINE 2020-09-23 00:00:00 Completed [facility] SARS-COV-2 COVID-19 MODERNA 12+ YRS VACCINE 2020-09-23 00:00:00 Completed [facility] SARS-COV-2 COVID-19 MODERNA 12+ YRS VACCINE 2020-09-23 00:00:00 Completed [facility] SARS-COV-2 COVID-19 MODERNA 12+ YRS VACCINE 2020-09-23 00:00:00 Completed [facility] SARS-COV-2 COVID-19 MODERNA VACCINE 2020-09-23 00:00:00 Completed [facility] SARS-COV-2 COVID-19 MODERNA VACCINE 2020-09-23 00:00:00 Completed [facility] SARS-COV-2 COVID-19 MODERNA VACCINE 2020-09-23 00:00:00 Completed [facility] SARS-COV-2 COVID-19 MODERNA VACCINE 2020-09-23 00:00:00 Completed [facility] SARS-COV-2 COVID-19 MODERNA VACCINE 2020-08-19 00:00:00 Completed [facility] SARS-COV-2 COVID-19 MODERNA VACCINE 2020-08-19 00:00:00 Completed [facility] SARS-COV-2 COVID-19 MODERNA VACCINE 2020-08-19 00:00:00 Completed [facility] SARS-COV-2 COVID-19 MODERNA VACCINE 2020-08-19 00:00:00 Completed [facility] SARS-COV-2 COVID-19 MODERNA VACCINE 2020-08-19 00:00:00 Completed [facility] SARS-COV-2 COVID-19 MODERNA 12+ YRS VACCINE 2020-08-19 00:00:00 Completed [facility] SARS-COV-2 COVID-19 MODERNA 12+ YRS VACCINE 2020-08-19 00:00:00 Completed [facility] SARS-COV-2 COVID-19 MODERNA 12+ YRS VACCINE 2020-08-19 00:00:00 Completed [facility] SARS-COV-2 COVID-19 MODERNA 12+ YRS VACCINE 2020-08-19 00:00:00 Completed [facility] SARS-COV-2 COVID-19 MODERNA 12+ YRS VACCINE 2020-08-19 00:00:00 Completed [facility] SARS-COV-2 COVID-19 MODERNA 12+ YRS VACCINE 2020-08-19 00:00:00 Completed [facility] SARS-COV-2 COVID-19 MODERNA 12+ YRS VACCINE 2020-08-19 00:00:00 Completed [facility] SARS-COV-2 COVID-19 MODERNA 12+ YRS VACCINE 2020-08-19 00:00:00 Completed [facility] SARS-COV-2 COVID-19 MODERNA 12+ YRS VACCINE 2020-08-19 00:00:00 Completed [facility] SARS-COV-2 COVID-19 MODERNA 12+ YRS VACCINE 2020-08-19 00:00:00 Completed [facility] SARS-COV-2 COVID-19 MODERNA 12+ YRS VACCINE 2020-08-19 00:00:00 Completed [facility] SARS-COV-2 COVID-19 MODERNA 12+ YRS VACCINE 2020-08-19 00:00:00 Completed [facility] SARS-COV-2 COVID-19 MODERNA 12+ YRS VACCINE 2020-08-19 00:00:00 Completed [facility] SARS-COV-2 COVID-19 MODERNA 12+ YRS VACCINE 2020-08-19 00:00:00 Completed [facility] SARS-COV-2 COVID-19 MODERNA 12+ YRS VACCINE 2020-08-19 00:00:00 Completed [facility] SARS-COV-2 COVID-19 MODERNA 12+ YRS VACCINE 2020-08-19 00:00:00 Completed [facility] SARS-COV-2 COVID-19 MODERNA VACCINE 2020-08-19 00:00:00 Completed [facility] SARS-COV-2 COVID-19 MODERNA VACCINE 2020-08-19 00:00:00 Completed [facility] SARS-COV-2 COVID-19 MODERNA VACCINE 2020-08-19 00:00:00 Completed [facility] SARS-COV-2 COVID-19 MODERNA VACCINE 2020-08-19 00:00:00 Completed [facility] Influenza Virus Vaccine 2019-04-16 00:00:00 Completed [facility] Influenza Virus Vaccine 2019-04-16 00:00:00 Completed [facility] Influenza Virus Vaccine 2019-04-16 00:00:00 Completed [facility] Influenza Virus Vaccine 2019-04-16 00:00:00 Completed [facility] Influenza Virus Vaccine 2019-04-16 00:00:00 Completed [facility] Influenza Virus Vaccine 2019-04-16 00:00:00 Completed [facility] Influenza Virus Vaccine 2019-04-16 00:00:00 Completed [facility] Influenza Virus Vaccine 2019-04-16 00:00:00 Completed [facility] Influenza Virus Vaccine 2019-04-16 00:00:00 Completed [facility] Influenza Virus Vaccine 2019-04-16 00:00:00 Completed [facility] Influenza Virus Vaccine 2019-04-16 00:00:00 Completed [facility] Influenza Virus Vaccine 2019-04-16 00:00:00 Completed [facility] Influenza Virus Vaccine 2019-04-16 00:00:00 Completed [facility] Influenza Virus Vaccine 2019-04-16 00:00:00 Completed [facility] Influenza Virus Vaccine 2019-04-16 00:00:00 Completed [facility] Influenza Virus Vaccine 2019-04-16 00:00:00 Completed [facility] Influenza Virus Vaccine 2019-04-16 00:00:00 Completed [facility] Influenza Virus Vaccine 2019-04-16 00:00:00 Completed [facility] Influenza Virus Vaccine 2019-04-16 00:00:00 Completed [facility] Influenza Virus Vaccine 2019-04-16 00:00:00 Completed [facility] Influenza Virus Vaccine 2019-04-16 00:00:00 Completed [facility] Influenza Virus Vaccine 2019-04-16 00:00:00 Completed [facility] Influenza Virus Vaccine 2019-04-16 00:00:00 Completed [facility] Influenza Virus Vaccine 2019-04-16 00:00:00 Completed [facility] Influenza Virus Vaccine 2019-04-16 00:00:00 Completed [facility] Influenza Virus Vaccine Unknown Completed [facility] SARS-COV-2 COVID-19 MODERNA 12+ YRS VACCINE Unknown Completed [facility] SARS-COV-2 COVID-19 MODERNA 12+ YRS VACCINE Unknown Completed [facility] Influenza Virus Vaccine Unknown Completed [facility] SARS-COV-2 COVID-19 MODERNA 12+ YRS VACCINE Unknown Completed [facility] SARS-COV-2 COVID-19 MODERNA 12+ YRS VACCINE Unknown Completed [facility] Influenza Virus Vaccine Unknown Completed [facility] SARS-COV-2 COVID-19 MODERNA 12+ YRS VACCINE Unknown Completed [facility] SARS-COV-2 COVID-19 MODERNA 12+ YRS VACCINE Unknown Completed [facility] Influenza Virus Vaccine Unknown Completed [facility] SARS-COV-2 COVID-19 MODERNA 12+ YRS VACCINE Unknown Completed [facility] SARS-COV-2 COVID-19 MODERNA 12+ YRS VACCINE Unknown Completed [facility] Influenza Virus Vaccine Unknown Completed [facility] SARS-COV-2 COVID-19 MODERNA 12+ YRS VACCINE Unknown Completed [facility] SARS-COV-2 COVID-19 MODERNA 12+ YRS VACCINE Unknown Completed [facility] Influenza Virus Vaccine Unknown Completed [facility] SARS-COV-2 COVID-19 MODERNA 12+ YRS VACCINE Unknown Completed [facility] SARS-COV-2 COVID-19 MODERNA 12+ YRS VACCINE Unknown Completed [facility] Influenza Virus Vaccine Unknown Completed [facility] SARS-COV-2 COVID-19 MODERNA 12+ YRS VACCINE Unknown Completed [facility] SARS-COV-2 COVID-19 MODERNA 12+ YRS VACCINE Unknown Completed [facility] Influenza Virus Vaccine Unknown Completed [facility] SARS-COV-2 COVID-19 MODERNA 12+ YRS VACCINE Unknown Completed [facility] SARS-COV-2 COVID-19 MODERNA 12+ YRS VACCINE Unknown Completed [facility] Influenza Virus Vaccine Unknown Completed [facility] SARS-COV-2 COVID-19 MODERNA 12+ YRS VACCINE Unknown Completed [facility] SARS-COV-2 COVID-19 MODERNA 12+ YRS VACCINE Unknown Completed [facility] Vital Signs Vital Name Observation Time Observation Value Comments S ource Systolic blood pressure 2023-07-17 17:09:00 136 mm[Hg] [facility] Diastolic blood pressure 2023-07-17 17:09:00 85 mm[Hg] [facility] Heart rate 2023-07-17 17:07:00 64 /min [facility] Body temperature 2023-07-17 17:07:00 37.17 Lin [facility] Body height 2023-07-17 17:07:00 157.5 cm [facility] Body weight 2023-07-17 17:07:00 81.194 kg [facility] BMI 2023-07-17 17:07:00 32.74 kg/m2 [facility] Oxygen saturation in Arterial blood by Pulse oximetry 2023-07-17 17:07:00 99 /min [facility] Systolic blood pressure 2023-07-06 17:43:00 141 mm[Hg] [facility] Diastolic blood pressure 2023-07-06 17:43:00 83 mm[Hg] [facility] Heart rate 2023-07-06 17:42:00 79 /min [facility] Body temperature 2023-07-06 17:42:00 36.94 Lin [facility] Respiratory rate 2023-07-06 17:42:00 16 /min [facility] Body height 2023-07-06 17:42:00 157.5 cm [facility] 2023-07-06 17:42:00 81.511 kg [facility] BMI 2023-07-06 17:42:00 32.87 kg/m2 [facility] Oxygen saturation in Arterial blood by Pulse oximetry 2023-07-06 17:42:00 99 /min [facility] Systolic blood pressure 2023-05-29 21:53:00 144 mm[Hg] [facility] Diastolic blood pressure 2023-05-29 21:53:00 75 mm[Hg] [facility] Heart rate 2023-05-29 21:50:00 62 /min [facility] Body height 2023-05-29 21:50:00 157.5 cm [facility] Body weight 2023-05-29 21:50:00 82.555 kg [facility] BMI 2023-05-29 21:50:00 33.29 kg/m2 [facility] Systolic blood pressure 2022-10-29 20:48:00 148 mm[Hg] [facility] Diastolic blood pressure 2022-10-29 20:48:00 85 mm[Hg] [facility] Heart rate 2022-10-29 20:48:00 55 /min [facility] Oxygen saturation in Arterial blood by Pulse oximetry 2022-10-29 20:48:00 100 /min [facility] Body height 2022-10-29 20:43:00 157.5 cm [facility] 2022-10-29 20:43:00 82.509 kg [facility] BMI 2022-10-29 20:43:00 33.27 kg/m2 [facility] Systolic blood pressure 2022-08-02 21:07:00 132 mm[Hg] [facility] Diastolic blood pressure 2022-08-02 21:07:00 92 mm[Hg] [facility] Heart rate 2022-08-02 21:06:00 62 /min [facility] Body temperature 2022-08-02 21:06:00 36.61 Lin [facility] Body height 2022-08-02 21:06:00 157.5 cm [facility] Body weight 2022-08-02 21:06:00 82.555 kg [facility] BMI 2022-08-02 21:06:00 33.29 kg/m2 [facility] Oxygen saturation in Arterial blood by Pulse oximetry 2022-08-02 21:06:00 100 /min [facility] Systolic blood pressure 2022-06-15 19:13:00 119 mm[Hg] [facility] Diastolic blood pressure 2022-06-15 19:13:00 64 mm[Hg] [facility] Heart rate 2022-06-15 19:13:00 65 /min [facility] Body temperature 2022-06-15 19:13:00 36.61 Lin [facility] Body height 2022-06-15 19:13:00 157.5 cm [facility] 2022-06-15 19:13:00 80.695 kg [facility] BMI 2022-06-15 19:13:00 32.54 kg/m2 [facility] Oxygen saturation in Arterial blood by Pulse oximetry 2022-06-15 19:13:00 100 /min [facility] Systolic blood pressure 2022-04-26 21:28:00 131 mm[Hg] [facility] Diastolic blood pressure 2022-04-26 21:28:00 82 mm[Hg] [facility] Heart rate 2022-04-26 21:28:00 63 /min [facility] Body temperature 2022-04-26 21:28:00 36.72 Lin [facility] Body height 2022-04-26 21:28:00 157.5 cm [facility] Body weight 2022-04-26 21:28:00 81.194 kg [facility] BMI 2022-04-26 21:28:00 32.74 kg/m2 [facility] Systolic blood pressure 2022-01-26 14:12:00 147 mm[Hg] [facility] Diastolic blood pressure 2022-01-26 14:12:00 84 mm[Hg] [facility] Heart rate 2022-01-26 14:11:00 75 /min [facility] Body temperature 2022-01-26 14:11:00 37.06 Lin [facility] Respiratory rate 2022-01-26 14:11:00 18 /min [facility] Body height 2022-01-26 14:11:00 157.5 cm [facility] Body weight 2022-01-26 14:11:00 78.79 kg [facility] BMI 2022-01-26 14:11:00 31.77 kg/m2 [facility] Oxygen saturation in Arterial blood by Pulse oximetry 2022-01-26 14:11:00 97 /min [facility] Oxygen saturation in Arterial blood by Pulse oximetry 2022-01-17 14:15:00 98 /min [facility] Systolic blood pressure 2022-01-17 14:15:00 124 mm[Hg] [facility] Diastolic blood pressure 2022-01-17 14:15:00 70 mm[Hg] [facility] Heart rate 2022-01-17 14:15:00 88 /min [facility] Body temperature 2022-01-17 14:15:00 36.89 Lin [facility] Respiratory rate 2022-01-17 14:15:00 18 /min [facility] Body height 2022-01-17 14:15:00 157.5 cm [facility] Body weight 2022-01-17 14:15:00 78.926 kg [facility] BMI 2022-01-17 14:15:00 31.83 kg/m2 [facility] Systolic blood pressure 2022-01-04 14:57:00 136 mm[Hg] [facility] Diastolic blood pressure 2022-01-04 14:57:00 66 mm[Hg] [facility] Heart rate 2022-01-04 14:57:00 64 /min [facility] Respiratory rate 2022-01-04 14:57:00 18 /min [facility] Body height 2022-01-04 14:57:00 157.5 cm [facility] Body weight 2022-01-04 14:57:00 79.379 kg [facility] BMI 2022-01-04 14:57:00 32.01 kg/m2 [facility] Oxygen saturation in Arterial blood by Pulse oximetry 2022-01-04 14:57:00 99 /min [facility] Procedures Procedure Date / Time Performed Performing Clinician Source BI SCREENING TOMOSYNTHESIS BILATERAL 2023-07-01 15:19:56 Jeb Arora [facility] CONSENT/REFUSAL FOR DIAGNOSIS AND TREATMENT 2023-07-01 14:32:34 Doctor Unassigned, Pro[place]cal [facility] PATIENT FINANCIAL POLICY 2022-10-29 20:21:55 Doctor Unassigned, Provencal [facility] REFERRAL- REQUEST/RESPONSE 2022-09-19 06:01:00 Doctor Unassigned, Provencal [facility] POCT URINALYSIS 2022-08-02 00:00:00 [facility] 2022-06-15 19:52:00 Haven Ybarra [facility] POCT URINALYSIS 2022-04-26 00:00:00 Jeb Arora [facility] POCT MOLECULAR STREP 2022-01-17 14:23:00 Sujata Fountain [facility] HB CREATININE BLOOD 2022-01-09 20:19:00 Lili Olivia [facility] POCT URINALYSIS AUTO 2022-01-04 14:59:00 Joanne Olivia [facility] Encounters Start Date/Time End Date/Time Encounter Type Admission Type Attending Clinicians Care Facility Care Department Encounter ID Source 2023-08-21 00:00:00 2023-08-21 00:00:00 Outpatient JEB RODRIGUEZ [facility] [id number] [facility] 2023-08-07 00:00:00 2023-08-07 00:00:00 Outpatient Ching ARORA JEB [facility] [id number] [facility] 2023-07-31 00:00:00 2023-07-31 00:00:00 Outpatient Ching JONAHPOORNIMA JEB [facility] [id number] [facility] 2023-07-17 11:15:00 2023-07-17 11:30:00 Office Visit Jeb Arora [facility] 1..840.114 350.1.13.10 4.2.7.2.686 [id number] [facility] 2023-07-17 11:15:00 2023-07-17 11:17:16 Outpatient Ching ARORA JEB [facility] [id number] [facility] 2023-07-06 11:20:00 2023-07-06 11:40:00 Urgent Care Karen Sorensen Unknown, Attending [facility] 1..840.114 350.1.13.10 4.2.7.2.686 [id number] [facility] 2023-07-06 11:20:00 2023-07-06 11:20:00 Outpatient R KAREN SORENSEN [facility] [id number] [facility] 2023-07-01 08:33:15 2023-07-01 23:59:00 Outpatient Ching COLLINSKAINJEB [facility] [id number] [facility] 2023-07-01 08:33:15 2023-07-01 23:59:00 Hospital Encounter Jeb Arora zabrina [facility] 1..840.114 350.1.13.10 4.2.7.2.686 [id number] [facility] 2023-07-01 00:00:00 2023-07-01 00:00:00 Orders Only Doctor Unassigned, Provencal [facility] 1.2.840.114 350.1.13.10 4.2.7.2.686 [id number] [facility] 2023-05-29 15:45:00 2023-05-29 16:12:00 Outpatient JEB RODRIGUEZ [facility] [id number] [facility] 2023-05-29 15:45:00 2023-05-29 16:12:00 Office Visit Jeb Arora [facility] 1.2.840.114 350.1.13.10 4.2.7.2.686 [id number] [facility] 2023-04-26 00:00:00 2023-04-26 00:00:00 Patient Secure Msg Doctor Unassigned, Provencal [facility] 1.2.840.114 350.1.13.10 4.2.7.2.686 [id number] [facility] 2022-11-14 09:00:00 2022-11-14 09:00:00 Outpatient JEB RODRIGUEZ [facility] [id number] [facility] 2022-11-14 07:30:00 2022-11-14 07:45:00 Tattoo Technician Visit Lab, Nils Arora [facility] MED[facility] OFF[facility] 1.2.840.114 350.1.13.10 4.2.7.2.686 [id number] [facility] 2022-11-14 07:30:00 2022-11-14 07:30:00 Outpatient JEB RODRIGUEZ [facility] [id number] [facility] 2022-10-29 15:45:00 2022-10-29 16:09:16 Outpatient R JEB ARORA [facility] [id number] [facility] 2022-10-29 15:45:00 2022-10-29 16:00:00 Office Visit Jeb Arora [facility] 1.2840.114 350.1.13.10 4.2.7.2.686 [id number] [facility] 2022-10-29 00:00:00 2022-10-29 00:00:00 Orders Only Doctor Unassigned, Provencal [facility] 1..114 350.1.13.10 4.2.7.2.686 [id number] [facility] 2022-10-25 16:30:00 2022-10-25 16:30:00 Outpatient R JEB ARORA [facility] [id number] [facility] 2022-09-19 00:00:00 2022-09-19 00:00:00 Orders Only Doctor Unassigned, Provencal [facility] 1..114 350.1.13.10 4.2.7.2.686 [id number] [facility] 2022-09-02 00:00:00 2022-09-02 00:00:00 Refill Jose CarlosJeb barlow [facility] 1.284.114 350.1.13.10 4.2.7.2.686 [id number] [facility] 2022-09-02 00:00:00 2022-09-02 00:00:00 [facility] 1.284.114 350.1.13.10 4.2.7.2.686 [id number] [facility] 2022-08-02 15:00:00 2022-08-02 16:23:27 Outpatient R CYNDEE SOARES [facility] [id number] [facility] 2022-08-02 15:00:00 2022-08-02 16:23:27 [facility] 1.2840.114 350.1.13.10 4.2.7.2.686 [id number] [facility] 2022-07-18 00:00:00 2022-07-18 00:00:00 Telephone Jose CarlosJeb barlow [facility] JCAOBO?[facility] 1.20.114 350.1.13.10 4.2.7.2.686 [id number] [facility] 2022-06-15 13:30:00 2022-06-15 13:39:11 Outpatient R HAVEN YBARRA [facility] [id number] [facility] 2022-06-15 13:30:00 2022-06-15 13:39:11 Office Visit Haven Ybarra [facility]OB[facility] 1..114 350.1.13.10 4.2.7.2.686 [id number] [facility] 2022-05-20 00:00:00 2022-05-20 00:00:00 Refill Ulysses [facility] JACOBO?[facility] 1.0.114 350.1.13.10 4.2.7.2.686 [id number] [facility] 2022-05-04 08:45:00 2022-05-04 09:00:00 Tattoo Technician [facility] 1.2840.114 350.1.13.10 4.2.7.2.686 [id number] [facility] 2022-05-04 08:45:00 2022-05-04 08:45:00 Outpatient R JEB ARORA [facility] [id number] [facility] 2022-04-27 13:00:00 2022-04-27 13:00:00 Outpatient R JEB ARORA [facility] [id number] [facility] 2022-04-26 16:30:00 2022-04-26 16:45:36 Outpatient R JEB ARORA [facility] [id number] [facility] 2022-04-26 16:30:00 2022-04-26 16:45:36 Office Visit UlyssesJeb [facility] MED[facility] OFF[facility] 1..840.114 350.1.13.10 4.2.7.2.686 [id number] [facility] 2022-01-26 09:00:00 2022-01-26 09:54:00 [facility] [id number] [facility] 2022-01-26 09:00:00 2022-01-26 09:54:00 [facility] 1..840.114 350.1.13.10 4.2.7.2.686 [id number] [facility] 2022-01-19 15:30:00 2022-01-19 15:30:00 Outpatient R CYNDEE SOARES [facility] [id number] [facility] 2022-01-18 00:00:00 2022-01-18 00:00:00 Telephone Sherin Delgadillo [facility] 1..840.114 350.1.13.10 4.2.7.2.686 [id number] [facility] 2022-01-18 00:00:00 2022-01-18 00:00:00 Telephone Александр [facility] [place]ACOBO[facility] [facility] 1.2.840.114 350.1.13.10 4.2.7.2.686 [id number] [facility] 2022-01-18 00:00:00 2022-01-18 00:00:00 Patient Secure Msg Jeb Arora [facility] PROFESSIO NAL BUILDING 1.2.840.114 350.1.13.10 4.2.7.2.686 [id number] [facility] 2022-01-18 00:00:00 2022-01-18 00:00:00 Telephone Jeb Arora [facility] [place]OB[place] [facility] 1.2.840.114 350.1.13.10 4.2.7.2.686 [id number] [facility] 2022-01-17 09:40:00 2022-01-17 09:40:00 Urgent Care Александр [facility] [place]ACOB[place] [facility] 1.2.840.114 350.1.13.10 4.2.7.2.686 [id number] [facility] 2022-01-17 09:40:00 2022-01-17 09:34:11 Outpatient R АЛЕКСАНДРSUJATA [facility] [id number] [facility] 2022-01-09 14:48:53 2022-01-09 23:59:00 Outpatient R [facility] [id number] [facility] 2022-01-09 14:48:53 2022-01-09 23:59:00 Hospital Encounter Corwin [facility] 1.2.840.114 350.1.13.10 4.2.7.2.686 [id number] [facility] 2022-01-08 13:30:00 2022-01-08 13:30:00 Outpatient R TALIB CHANG [facility] [id number] [facility] 2022-01-04 09:30:00 2022-01-04 10:18:44 Outpatient R OSWALDO OLIVIAFORMERLY [facility] [id number] [facility] 2022-01-04 09:30:00 2022-01-04 10:18:44 [facility] 1..840.114 350.1.13.10 4.2.7.2.686 [id number] [facility] 2021-12-27 15:30:00 2021-12-27 16:00:00 [facility] 1.2.840.114 350.1.13.10 4.2.7.2.686 [id number] [facility] 2021-12-27 15:30:00 2021-12-27 15:30:00 Outpatient R JEB ARORA [facility] [id number] [facility] 2021-12-27 00:00:00 2021-12-27 00:00:00 Orders Only Doctor Unassigned, Provencal [facility] 1.2.840.114 350.1.13.10 4.2.7.2.686 [id number] [facility] 2021-10-26 08:30:00 2021-10-26 08:30:00 Outpatient JEB RODRIGUEZ [facility] [id number] [facility] 2021-09-28 11:15:00 2021-09-28 11:15:00 Outpatient JEB RODRIGUEZ [facility] [id number] [facility] 2021-09-19 00:00:00 2021-09-19 00:00:00 Orders Only Doctor Unassigned, Provencal [facility] 1.2.840.114 350.1.13.10 4.2.7.2.686 [id number] [facility] 2021-09-01 00:00:00 2021-09-01 00:00:00 Telephone Ulysses [facility] MED[facility] 1.2.840.114 350.1.13.10 4.2.7.2.686 [id number] [facility] 2021-09-01 00:00:00 2021-09-01 00:00:00 Orders Only Doctor Unassigned, Provencal [facility] 1.2.840.114 350.1.13.10 4.2.7.2.686 [id number] [facility] 2021-08-10 00:00:00 2021-08-10 00:00:00 Telephone Ulysses [facility] MED[facility] OFFICE BUILDING 1.2840.114 350.1.13.10 4.2.7.2.686 [id number] [facility] 2021-07-18 12:32:34 2021-07-18 23:59:00 Hospital Encounter Ulysses [facility] 1.2.840.114 350.1.13.10 4.2.7.2.686 [id number] [facility] 2021-07-18 12:31:56 2021-07-18 12:31:56 Outpatient R ULYSSES [facility] [id number] [facility] 2021-07-18 12:31:56 2021-07-18 12:31:56 Hospital [facility] 1.2.840.114 350.1.13.10 4.2.7.2.686 [id number] [facility] 2021-05-12 09:10:09 2021-05-12 23:59:00 Outpatient R ULYSSES JEB [facility] [id number] [facility] 2021-05-12 09:00:00 2021-05-12 23:59:00 Hospital Encounter Jeb Arora [facility] 1..840.114 350.1.13.10 4.2.7.2.686 [id number] [facility] 2021-04-28 08:05:16 2021-04-28 08:20:16 Tattoo Technician Visit Lab, Jeb Heath [facility]?Allysonjose alejandro traceeLocated within [facility] Office Building 1..840.114 350.1.13.10 4.2.7.2.686 [id number] [facility] 2021-04-28 08:15:00 2021-04-28 08:15:00 Outpatient R ULYSSES JEB [facility] [id number] [facility] 2021-04-25 15:04:37 2021-04-25 15:28:32 Office Visit Ulysses Jeb [facility]?Allysonjose alejandro [place] [facility] 1..840.114 350.1.13.10 4.2.7.2.686 [id number] [facility] 2021-04-25 15:15:00 2021-04-25 15:15:00 Outpatient Ching ARORA JEB [facility] [id number] [facility] 2021-04-21 00:00:00 2021-04-21 00:00:00 Refill Jeb Arora [facility] Office Building One 1..840.114 350.1.13.10 4.2.7.2.686 [id number] [facility] 2021-04-21 00:00:00 2021-04-21 00:00:00 Telephone Jeb Arora [facility] 1.2840.114 350.1.13.10 4.2.7.2.686 [id number] [id number] [facility] 2021-04-18 00:00:00 2021-04-18 00:00:00 Refbelinda Arora [facility] Office Building One 1.2840.114 350.1.13.10 4.2.7.2.686 [id number] 044 [id number] [facility] 2021-04-17 00:00:00 2021-04-17 00:00:00 Jose Arora [facility] Office Building One 1.2840.114 350.1.13.10 4.2.7.2.686 [id number] [id number] [facility] 2021-03-22 00:00:00 2021-03-22 00:00:00 Refbelinda Arora [facility] Office Building One 1.840.114 350.1.13.10 4.2.7.2.686 [id number] [facility] 2021-03-19 00:00:00 2021-03-19 00:00:00 Jose Arora [facility] nal Building 1.2840.114 350.1.13.10 4.2.7.2.686 [id number] [facility] 2021-02-13 00:00:00 2021-02-13 00:00:00 Jose Arora [facility] Office Building One 1.2840.114 350.1.13.10 4.2.7.2.686 [id number] [id number] [facility] 2021-01-13 00:00:00 2021-01-13 00:00:00 Jeb Alvarado [facility] Office Building One 1.2.840.114 350.1.13.10 4.2.7.2.686 [id number] [facility] 2021-01-12 14:13:16 2021-01-12 14:53:16 Ancillary Visit Ayde Post Craig L [facility] Building 1.284.114 350.1.13.10 4.2.7.2.686 [id number] [facility] 2021-01-12 14:20:00 2021-01-12 14:20:00 Outpatient R DAVE SHANNON [facility] [id number] [facility] 2021-01-10 15:49:12 2021-01-10 16:29:12 Ancillary Visit Kiara Austin Craig L [facility] Building 1.2.840.114 350.1.13.10 4.2.7.2.686 [id number] [facility] 2021-01-04 15:22:52 2021-01-04 16:02:52 Ancillary Visit Ayde Post Craig L [facility] Building 1.2.840.114 350.1.13.10 4.2.7.2.686 [id number] [facility] 2021-01-02 13:51:32 2021-01-02 14:31:32 Ancillary Visit Ayde Post Craig L [facility] 1.2.840.114 350.1.13.10 4.2.7.2.686 [id number] [facility] 2020-12-30 15:19:58 2020-12-30 15:59:58 Ancillary Visit Kiara Austin Craig L [facility] Building 1.2.114 350.1.13.10 4.2.7.2.686 [id number] [facility] 2020-12-28 15:30:30 2020-12-28 16:13:52 Ancillary Visit Ayde Post Craig L [facility] Building 1.20.114 350.1.13.10 4.2.7.2.686 [id number] [facility] 2020-12-26 00:00:00 2020-12-26 00:00:00 Orders Only Doctor Unassigned, Provencal [facility] 1..114 350.1.13.10 4.2.7.2.686 [id number] [facility] 2020-12-21 13:04:13 2020-12-21 13:53:36 Ancillary Visit Reuben TannerKiara Craig L [facility] Building 1.114 350.1.13.10 4.2.7.2.686 [id number] [facility] 2020-12-21 13:00:00 2020-12-21 13:00:00 Outpatient DAVE SALDIVAR [facility] [id number] [facility] 2020-12-12 00:00:00 2020-12-12 00:00:00 Jeb Alvarado [facility] Office Building One 1..114 350.1.13.10 4.2.7.2.686 [id number] 044 [id number] [facility] 2020-12-10 00:00:00 2020-12-10 00:00:00 Jeb Alvarado [facility] Office Building One 1..114 350.1.13.10 4.2.7.2.686 [id number] [id number] [facility] 2020-12-09 09:36:07 2020-12-09 23:59:00 Hospital Encounter Dave Shannon [facility] 1.2.840.114 350.1.13.10 4.2.7.2.686 [id number] [facility] 2020-12-09 10:01:37 2020-12-09 10:31:25 Office Visit [facility] 1.2.840.114 350.1.13.10 4.2.7.2.686 [id number] [facility] 2020-12-09 10:30:00 2020-12-09 10:30:00 Outpatient R DAVE SHANNON [facility] [id number] [facility] 2020-12-09 00:00:00 2020-12-09 00:00:00 Orders Only Doctor Unassigned, Provencal [facility] 1.2.840.114 350.1.13.10 4.2.7.2.686 [id number] [facility] 2020-12-09 00:00:00 2020-12-09 00:00:00 Telephone [facility] 1.2.840.114 350.1.13.10 4.2.7.2.686 [id number] [facility] 2020-12-07 00:00:00 2020-12-07 00:00:00 Telephone Dave Shannon [facility] 1.2.840.114 350.1.13.10 4.2.7.2.686 [id number] [facility] 2020-11-12 00:00:00 2020-11-12 00:00:00 Refill Veselka, [facility] Office Building One 1.840.114 350.1.13.10 4.2.7.2.686 [id number] [id number] [facility] 2020-10-11 00:00:00 2020-10-11 00:00:00 Refbelinda Jonahpoornima [facility] Office Building One 1.840.114 350.1.13.10 4.2.7.2.686 [id number] [id number] [facility] 2020-10-10 00:00:00 2020-10-10 00:00:00 Jose Jonahpoornima [facility] Office Building One 1.840.114 350.1.13.10 4.2.7.2.686 [id number] [id number] [facility] 2020-10-07 00:00:00 2020-10-07 00:00:00 Orders Only Doctor Unassigned, Provencal [facility] 1.840.114 350.1.13.10 4.2.7.2.686 [id number] [facility] 2020-09-06 00:00:00 2020-09-06 00:00:00 Telephone Ulysses [facility] Office Building One 1.840.114 350.1.13.10 4.2.7.2.686 [id number] [id number] [facility] 2020-08-12 00:00:00 2020-08-12 00:00:00 Telephone UlyssesJeb [facility] Office Building One 1.840.114 350.1.13.10 4.2.7.2.686 [id number] [id number] [facility] 2020-08-10 00:00:00 2020-08-10 00:00:00 Refill Ulysses [facility] Office Building One 1.2840.114 350.1.13.10 4.2.7.2.686 [id number] [facility] 2020-08-07 00:00:00 2020-08-07 00:00:00 Refill Ulysses [facility] Office Building One 1.2840.114 350.1.13.10 4.2.7.2.686 [id number] [id number] [facility] 2020-07-05 00:00:00 2020-07-05 00:00:00 Refill Ulysses [facility] Office Building One 1.840.114 350.1.13.10 4.2.7.2.686 [id number] [facility] 2020-06-03 00:00:00 2020-06-03 00:00:00 Telephone Ulysses [facility] Office Building One 1.2840.114 350.1.13.10 4.2.7.2.686 [id number] [id number] [facility] 2020-06-02 00:00:00 2020-06-02 00:00:00 Telephone Ulysses [facility] Office Building One 1.2840.114 350.1.13.10 4.2.7.2.686 [id number] [facility] 2020-06-01 00:00:00 2020-06-01 00:00:00 Telephone Jeb Arora [facility] Office Building One 1.2840.114 350.1.13.10 4.2.7.2.686 [id number] [facility] 2020-03-24 00:00:00 2020-03-24 00:00:00 [facility] 1.2840.114 350.1.13.10 4.2.7.2.686 [id number] [facility] 2020-03-22 10:14:32 2020-03-22 23:59:00 [facility] 1.2.840.114 350.1.13.10 4.2.7.2.686 [id number] [facility] 2020-03-22 10:15:00 2020-03-22 10:15:00 Outpatient R [place] [facility] [id number] [facility] 2020-03-22 09:54:08 2020-03-22 10:09:08 Office Visit [place] [facility] 1.2840.114 350.1.13.10 4.2.7.2.686 [id number] [facility] 2020-03-17 16:01:20 2020-03-17 16:30:33 Office Visit Jeb Arora [facility] Building 1.2840.114 350.1.13.10 4.2.7.2.686 [id number] [facility] 2020-03-17 16:15:00 2020-03-17 16:15:00 Outpatient R JEB ARORA [facility] [id number] [facility] 2020-03-09 13:45:00 2020-03-09 13:45:00 Outpatient R JEB ARORA [facility] [id number] [facility] 2020-02-10 14:45:00 2020-02-10 23:59:00 Hospital Encounter Ryann Nguyen [facility] 1.2.840.114 350.1.13.10 4.2.7.2.686 [id number] [facility] 2020-02-10 00:00:00 2020-02-10 00:00:00 Outpatient RYANN BRANDT [facility] [id number] [facility] 2020-01-15 09:31:14 2020-01-15 09:46:14 Tattoo Technician Visit Adan, [facility] Ryann Pyle [facility] 1.2.840.114 350.1.13.10 4.2.7.2.686 [id number] [facility] 2020-01-15 09:45:00 2020-01-15 09:45:00 Outpatient RYANN BRANDT [facility] [id number] [facility] 2020-01-15 00:00:00 2020-01-15 00:00:00 Orders Only Doctor Unassigned, Provencal [facility] 1.2.840.114 350.1.13.10 4.2.7.2.686 [id number] [facility] Results Test Description Test Time Test Comments Results Result Co mments Source [facility] URINALYSIS W SPECIFIC [id number] 21:16:00* Test Item Value Reference Range Interpretation Comme nts POCT U SP GRAV (test code = 3255) 1.025 mg/dl 1.005-1.025 POCT PH U (test code = 3254) 6 mg/dl 5-8 POCT U LEUK EST (test code = 3263) + Negative - Negative POCT U NIT (test code = 3262) Neg Negative - Negati ve POCT U PROT (test code = 3259) Trace Negative - Negative POCT U GLU (test code = 3256) Normal Negative - Negati ve POCT U KETONE (test code = 3258) Neg Negative - Negative POCT U UROBILI (test code = 3260) Normal 0.2-1 POCT U BILI (test code = 3261) Neg Negative - Negative POCT U BLD (test code = 3257) Negative - Negati ve POCT U COLOR (test code = 3266) dark yellow POCT U APPEAR (test code = 3267) [facility] [id number] 19:53:00* Test Item Value Reference Range Interpretation Comme nts POCT U SP GRAV (test code = 3255) 1.025 mg/dl 1.005-1.025 POCT PH U (test code = 3254) 5 mg/dl 5-8 POCT U LEUK EST (test code = 3263) + Negative - Negative POCT U NIT (test code = 3262) pos Negative - Negati ve POCT U PROT (test code = 3259) trace Negative - Negative POCT U GLU (test code = 3256) normal Negative - Negati ve POCT U KETONE (test code = 3258) neg Negative - Negative POCT U UROBILI (test code = 3260) normal 0.2-1 POCT U BILI (test code = 3261) neg Negative - Negative POCT U BLD (test code = 3257) Negative - Negati ve POCT U COLOR (test code = 3266) dark yellow POCT U APPEAR (test code = 3267) cloudy Lab Interpretation (test cod e = 37968-0) Abnormal [facility] URINALYSIS W SPECIFIC [id number] 19:53:00* Test Item Value Reference Range Interpretation Comme nts POCT U SP GRAV (test code = 3255) 1.025 mg/dl 1.005-1.025 POCT PH U (test code = 3254) 5 mg/dl 5-8 POCT U LEUK EST (test code = 3263) + Negative - Negative POCT U NIT (test code = 3262) pos Negative - Negati ve POCT U PROT (test code = 3259) trace Negative - Negative POCT U GLU (test code = 3256) normal Negative - Negati ve POCT U KETONE (test code = 3258) neg Negative - Negative POCT U UROBILI (test code = 3260) normal 0.2-1 POCT U BILI (test code = 3261) neg Negative - Negative POCT U BLD (test code = 3257) Negative - Negati ve POCT U COLOR (test code = 3266) dark yellow POCT U APPEAR (test code = 3267) cloudy Lab Interpretation (test cod e = 64949-9) Abnormal [facility] URINALYSIS W SPECIFIC [id number] 21:47:00* Test Item Value Reference Range Interpretation Comme nts POCT U SP GRAV (test code = 3255) 1.020 mg/dl 1.005-1.025 POCT PH U (test code = 3254) 5 mg/dl 5-8 POCT U LEUK EST (test code = 3263) + Negative - Negative POCT U NIT (test code = 3262) neg Negative - Negati ve POCT U PROT (test code = 3259) trace Negative - Negative POCT U GLU (test code = 3256) normal Negative - Negati ve POCT U KETONE (test code = 3258) neg Negative - Negative POCT U UROBILI (test code = 3260) normal 0.2-1 POCT U BILI (test code = 3261) neg Negative - Negative POCT U BLD (test code = 3257) trace Negative - Negati ve POCT U COLOR (test code = 3266) dark POCT U APPEAR (test code = 3267) clear [facility] URINALYSIS W SPECIFIC [id number] 21:47:00* Test Item Value Reference Range Interpretation Comme nts POCT U SP GRAV (test code = 3255) 1.020 mg/dl 1.005-1.025 POCT PH U (test code = 3254) 5 mg/dl 5-8 POCT U LEUK EST (test code = 3263) + Negative - Negative POCT U NIT (test code = 3262) neg Negative - Negati ve POCT U PROT (test code = 3259) trace Negative - Negative POCT U GLU (test code = 3256) normal Negative - Negati ve POCT U KETONE (test code = 3258) neg Negative - Negative POCT U UROBILI (test code = 3260) normal 0.2-1 POCT U BILI (test code = 3261) neg Negative - Negative POCT U BLD (test code = 3257) trace Negative - Negati ve POCT U COLOR (test code = 3266) dark POCT U APPEAR (test code = 3267) clear [facility] MOLECULAR [id number] 14:31:07* Test Item Value Reference Range Interpretation Comme nts POCT Molecular Strep (test c ode = 70184-1) Negative Negative Lab Interpretation (test cod e = 84852-7) Normal [facility] [id number] 20:36:54* Test Item Value Reference Range Interpretation Comme nts POCT Creatinine (test code = 8900724335) 0.8 mg/dL 0.5-1.1 Lab Interpretation (test cod e = 68674-4) Normal [facility] URINALYSIS, [id number] 15:01:00 * Test Item Value Reference Range Interpretation Comme nts POCT U SP GRAV (test code = 3255) 1.020 mg/dl 1.005-1.025 POCT PH U (test code = 3254) 6.5 mg/dl 5-8 POCT U LEUK EST (test code = 3263) Large Negative - Negative POCT U NIT (test code = 3262) Negative Negative - Negati ve POCT U PROT (test code = 3259) Negative Negative - Negative POCT U GLU (test code = 3256) Negative Negative - Negati ve POCT U KETONE (test code = 3258) Neagtive Negative - Negative POCT U UROBILI (test code = 3260) 0.2 mg/dl 0.2-1 POCT U BILI (test code = 3261) Negative Negative - Negative POCT U BLD (test code = 3257) Neagtive Negative - Negati ve POCT U COLOR (test code = 3266) Yellow POCT U APPEAR (test code = 3267) Clear [facility] URINALYSIS, [id number] 15:01:00 * Test Item Value Reference Range Interpretation Comme nts POCT U SP GRAV (test code = 3255) 1.020 mg/dl 1.005-1.025 POCT PH U (test code = 3254) 6.5 mg/dl 5-8 POCT U LEUK EST (test code = 3263) Large Negative - Negative POCT U NIT (test code = 3262) Negative Negative - Negati ve POCT U PROT (test code = 3259) Negative Negative - Negative POCT U GLU (test code = 3256) Negative Negative - Negati ve POCT U KETONE (test code = 3258) Neagtive Negative - Negative POCT U UROBILI (test code = 3260) 0.2 mg/dl 0.2-1 POCT U BILI (test code = 3261) Negative Negative - Negative POCT U BLD (test code = 3257) Neagtive Negative - Negati ve POCT U COLOR (test code = 3266) Yellow POCT U APPEAR (test code = 3267) Clear [facility]
[2023-08-20 04:52] LABS: Absolute Lymphocytes (CBC) 0.3 K/uL (0.7-4.9); Hematocrit 39.2 % (36.0-45.0); Lymphocytes % 2.9 % (15.3-44.8); MCV 90.6 fL (80-100); MPV 8.4 fL (7.6-11.3); Platelets 237 thou/uL (152-406); RBC Red Blood Cell Count 4.32 M/uL (3.86-4.86)
[2023-08-20 05:06] LABS: ALT/SGPT 46 U/L (13-56); AST/SGOT 25 U/L (15-37); Albumin 3.7 g/dL (3.4-5.0); Alkaline Phosphatase 153 U/L (45-117); BUN Blood Urea Nitrogen 17 mg/dL (7-18); Bicarbonate 26 mEq/L (21-32); Bilirubin Total 1.2 mg/dL (0.2-1.0); Glomerular Filtration Rate 65 ml/min (=/>90); Glucose Level 150 mg/dL (74-106); Lipase 30 U/L (13-75); Potassium 3.5 mEq/L (3.5-5.1); Protein, Total 7.2 g/dL (6.4-8.2); Sodium Level 142 mEq/L (136-145)
[2023-08-20 05:16] LABS: SARS-CoV-2 Antigen Rapid Res Negative (Negative)
[2023-08-20 05:18] LABS: C-Reactive Protein < 2.90 mg/L (<3.00)
[2023-08-20 05:29] LABS: Blood Morphology Comment NOT SEEN (NOT SEEN); Platelet Estimate ADEQ
[2023-08-20 06:27] LABS: Specific Gravity 1.022 (1.005-1.030); Urine Bacteria None Seen /HPF (<20); Urine Bilirubin NEGATIVE (Negative); Urine Blood Negative (Negative); Urine Clarity Clear (Clear); Urine Color Light-Yellow (Yellow); Urine Glucose NEGATIVE (Negative); Urine Mucus Slight /HPF (None Seen); Urine Protein NEGATIVE (Negative); Urine RBC None Seen /HPF (None Seen); Urine Urobilinogen Normal (Normal)
--- NOTE | 2023-08-20 06:47 | ER ---
Nurse's Notes [facility] Name: Cydney Pierce Age: 57 yrs Sex: Female : 1965 Arrival Date: 08/20/2023 Time: 04:22 Bed 7 Private MD: Diagnosis: Diarrhea, unspecified;Acute gastroenteritis, Presentation: 08/20 04:32 Chief complaint: Patient states: N/V/D SINCE 0100 TODAY, DENIES ABD PAIN AND FEVER. rv Coronavirus screen: At this time, the client does not indicate any symptoms associated with coronavirus-19. Ebola Screen: No symptoms or risks identified at this time. Initial Sepsis Screen: Does the patient meet any 2 criteria? No. Patient's initial sepsis screen is negative. Does the patient have a suspected source of infection? No. Patient's initial sepsis screen is negative. Risk Assessment: Do you want to hurt yourself or someone else? Patient reports no desire to harm self or others. Onset of symptoms was August 20, 2023. 04:32 Method Of Arrival: Ambulatory rv 04:32 Acuity: SHENG 3 rv Triage Assessment: 04:33 General: Appears comfortable, Behavior is calm, cooperative. Pain: Denies pain. Neuro: rv Level of Consciousness is awake, alert, obeys commands, Oriented to person, place, time, situation. Cardiovascular: Capillary refill < 3 seconds Patient's skin is warm and dry. Respiratory: Airway is patent Respiratory effort is even, unlabored. GI: Reports diarrhea, nausea, vomiting. : No signs and/or symptoms were reported regarding the genitourinary system. Derm: Skin is intact. Historical: - Allergies: 04:33 Codeine; rv - PMHx: 04:33 Hypertensive disorder; rv - PSHx: 04:33 Cholecystectomy; Appendectomy; HYSTERECTOMY; rv - Immunization history:: Adult Immunizations up to date. - Social history:: Smoking status: Patient denies any tobacco usage or history of. - Family history:: not pertinent. Screenin:35 [facility] ED Fall Risk Assessment (Adult) History of falling in the last 3 months, rv including since admission No falls in past 3 months (0 pts) Score/Fall Risk Level 0 - 2 = Low Risk Oriented to surroundings, Maintained a safe environment, Educated pt \T\ family on fall prevention, incl call for assistance when getting out of bed, Assessed \T\ reinforced patient's understanding of fall precautions. Abuse screen: Denies threats or abuse. Denies injuries from another. Nutritional screening: No deficits noted. Tuberculosis screening: No symptoms or risk factors identified. Assessment: 04:43 GI: Abdomen is round non-distended. rv 04:45 General: See Triage Assessment. jw7 05:40 Reassessment: Patient appears in no apparent distress at this time. No changes from jw7 previously documented assessment. Patient and/or family updated on plan of care and expected duration. Pain level reassessed. Patient is alert, oriented x 3, equal unlabored respirations, skin warm/dry/pink. 06:25 Reassessment: Patient appears in no apparent distress at this time. Patient and/or jw7 family updated on plan of care and expected duration. Pain level reassessed. Patient is alert, oriented x 3, equal unlabored respirations, skin warm/dry/pink. Patient states symptoms have improved. Vital Signs: 04:32 BP 163 / 94; Pulse 97; Resp 16; Temp 97.9; Pulse Ox 97% ; Weight 79.38 kg; Height 5 ft. rv 2 in. ; 05:30 BP 114 / 90; Pulse 89; Resp 17 S; Pulse Ox 99% on R/A; jw7 06:26 BP 131 / 93; Pulse 83; Resp 16 S; Pulse Ox 99% on R/A; jw7 04:32 Body Mass Index 32.01 (79.38 kg, 157.48 cm) rv ED Course: 04:24 Patient arrived in ED. jj6 04:32 Jaspal Covington RN is Primary Nurse. rv 04:33 Suraj Babin MD is Attending Physician. sp4 04:33 Triage completed. rv 04:33 Arm band placed on right wrist. rv 04:35 Patient has correct armband on for positive identification. Client placed on continuous rv cardiac and pulse oximetry monitoring. NIBP monitoring applied. 04:35 No provider procedures requiring assistance completed. rv 04:44 Inserted saline lock: 20 gauge in right antecubital area, using aseptic technique. rv Blood collected. 07:08 IV discontinued, intact, bleeding controlled, No redness/swelling at site. Pressure jw7 dressing applied. 07:09 Provided Education on: Discharge instructions and medication usage. jw7 Administered Medications: 05:02 Drug: Ondansetron IVP 8 mg IVP once; over 2 minutes Route: IVP; Site: right antecubital;rv 06:27 Follow up: Response: No adverse reaction; Marked relief of symptoms jw7 05:02 Drug: NS 0.9% IV 1000 ml IV at 1 bolus Per protocol; 1000 mL bolus Route: IV; Rate: 1 rv bolus; Site: right antecubital; 06:27 Follow up: Response: No adverse reaction; IV Status: Completed infusion; IV Intake: jw7 1000ml 05:02 Drug: Famotidine IVP 20 mg IVP once; dilute with 10 mL 0.9% NaCl; give over 2 minutes rv Route: IVP; Site: right antecubital; 06:27 Follow up: Response: No adverse reaction; Marked relief of symptoms jw7 05:16 Drug: Dicyclomine PO 20 mg PO once Route: PO; jw7 06:28 Follow up: Response: No adverse reaction jw7 05:16 Not Given (Out of Stock in Hospital ): diphenoxylate-atropine2 tabs PO once jw7 05:17 Drug: Ketorolac IVP 15 mg IVP once Route: IVP; Site: right antecubital; jw7 06:28 Follow up: Response: No adverse reaction; Marked relief of symptoms jw7 06:10 Drug: Loperamide PO 4 mg PO once Route: PO; jw7 07:09 Follow up: Response: No adverse reaction jw7 06:47 Drug: metoCLOPramide IVP 10 mg IVP once; over 1 to 2 minutes Route: IVP; Site: right jw antecubital; 07:09 Follow up: Response: No adverse reaction jw7 Medication: 04:35 VIS not applicable for this client. rv Intake: 06:27 IV: 1000ml; Total: 1000ml. jw7 Outcome: 06:47 Discharge ordered by MD. schilling 07:08 Discharged to home ambulatory, jw7 07:08 Condition: stable 07:08 Discharge instructions given to patient, Instructed on discharge instructions, follow up and referral plans. medication usage, Demonstrated understanding of instructions, follow-up care, medications, Prescriptions given X 2, 07:09 Patient left the ED. jw7 Signatures: Jaspal Covington RN RN rv Shyann Queen Jodi, RN RN jw7 Suraj Babin MD MD sp4 Corrections: (The following items were deleted from the chart) 04:34 04:33 Allergies: No Known Allergies; rv rv
--- NOTE | 2023-08-20 06:47 | EDPHYS ---
Physician Documentation [facility] Name: Cydney Pierce Age: 57 yrs Sex: Female : 1965 Arrival Date: 08/20/2023 Time: 04:22 Bed 7 Private MD: ED Physician Suraj Babin HPI: 08/20 04:34 This 57 yrs old Female presents to ER via Ambulatory with complaints of sp4 Nausea/Vomiting/Diarrhea. 05:59 57-year-old female with history of hypertension presents with acute onset nausea sp4 vomiting diarrhea starting last night. Patient states she had 5 episodes of vomiting associated with watery nonbloody diarrhea. . Historical: - Allergies: 04:33 Codeine; rv - PMHx: 04:33 Hypertensive disorder; rv - PSHx: 04:33 Cholecystectomy; Appendectomy; HYSTERECTOMY; rv - Immunization history:: Adult Immunizations up to date. - Social history:: Smoking status: Patient denies any tobacco usage or history of. - Family history:: not pertinent. ROS: 05:58 Constitutional: Negative for fever, chills, and weight loss, positive nausea, positive sp4 vomiting, positive diarrhea 05:58 All other systems are negative, Exam: 05:58 Constitutional: This is a well developed, well nourished patient who is awake, alert, sp4 and in no acute distress. Head/Face: Normocephalic, atraumatic. Eyes: Pupils equal round and reactive to light, extra-ocular motions intact. Lids and lashes normal. Conjunctiva and sclera are not injected. Cornea within normal limits. Periorbital areas with no swelling, redness, or edema. ENT: Nares patent. No nasal discharge, no septal abnormalities noted. Tympanic membranes are normal and external auditory canals are clear. Oropharynx with no redness, swelling, or masses, exudates, or evidence of obstruction, uvula midline. Mucous membranes moist. Neck: Trachea midline, no thyromegaly or masses palpated, and no cervical lymphadenopathy. Supple, full range of motion without nuchal rigidity, or vertebral point tenderness. Chest/axilla: Normal chest wall appearance and motion. Nontender with no deformity. No lesions are appreciated. Cardiovascular: Regular rate and rhythm with a normal S1 and S2. No gallops, murmurs, or rubs. Normal PMI, no JVD. No pulse deficits. Respiratory: Lungs have equal breath sounds bilaterally, clear to auscultation and percussion. No rales, rhonchi or wheezes noted. No increased work of breathing, no retractions or nasal flaring. Abdomen/GI: Soft, non-tender, with normal bowel sounds. No distension or tympany. No guarding or rebound. No evidence of tenderness throughout. Back: No spinal tenderness. No costovertebral tenderness. Skin: Warm, dry with normal turgor. Normal color with no rashes, no lesions, and no evidence of cellulitis. MS/ Extremity: Pulses equal, no cyanosis. Neurovascular intact. Full, normal range of motion. Neuro: Awake and alert, GCS 15, oriented to person, place, time, and situation. Cranial nerves II-XII grossly intact. Motor strength 5/5 in all extremities. Sensory grossly intact. Psych: Awake, alert, with orientation to person, place and time. Behavior, mood, and affect are within normal limits Vital Signs: 04:32 BP 163 / 94; Pulse 97; Resp 16; Temp 97.9; Pulse Ox 97% ; Weight 79.38 kg; Height 5 ft. rv 2 in. ; 05:30 BP 114 / 90; Pulse 89; Resp 17 S; Pulse Ox 99% on R/A; jw7 06:26 BP 131 / 93; Pulse 83; Resp 16 S; Pulse Ox 99% on R/A; jw7 04:32 Body Mass Index 32.01 (79.38 kg, 157.48 cm) rv MDM: 04:35 Patient medically screened. sp4 06:50 Differential diagnosis: Nonspecific abd pain, gastritis, diverticulitis, viral sp4 gastroenteritis, gastroenteritis. Data reviewed: vital signs, nurses notes, lab test result(s), electrolytes, hepatic panel, urinalysis. ED course: Patient felt improved, stable for discharge home. 08/20 04:34 Order name: CBC with Diff; Complete Time: 05:39 sp4 08/20 04:34 Order name: CMP; Complete Time: 05:39 sp4 08/20 04:34 Order name: Lipase; Complete Time: 05:39 sp4 08/20 04:34 Order name: Urinalysis w/ reflexes; Complete Time: 06:41 sp4 08/20 04:34 Order name: SARS RAPID; Complete Time: 05:39 sp4 08/20 04:34 Order name: Influenza Screen (a \T\ B); Complete Time: 05:39 sp4 08/20 04:56 Order name: Manual Differential; Complete Time: 05:39 EDMS 08/20 05:09 Order name: C-Reactive Protein; Complete Time: 05:39 EDMS 08/20 04:34 Order name: IV Saline Lock; Complete Time: 04:36 sp4 08/20 04:34 Order name: Labs collected and sent; Complete Time: 04:36 sp4 Administered Medications: 05:02 Drug: Ondansetron IVP 8 mg IVP once; over 2 minutes Route: IVP; Site: right antecubital;rv 06:27 Follow up: Response: No adverse reaction; Marked relief of symptoms jw7 05:02 Drug: NS 0.9% IV 1000 ml IV at 1 bolus Per protocol; 1000 mL bolus Route: IV; Rate: 1 rv bolus; Site: right antecubital; 06:27 Follow up: Response: No adverse reaction; IV Status: Completed infusion; IV Intake: jw7 1000ml 05:02 Drug: Famotidine IVP 20 mg IVP once; dilute with 10 mL 0.9% NaCl; give over 2 minutes rv Route: IVP; Site: right antecubital; 06:27 Follow up: Response: No adverse reaction; Marked relief of symptoms jw7 05:16 Drug: Dicyclomine PO 20 mg PO once Route: PO; jw7 06:28 Follow up: Response: No adverse reaction jw7 05:16 Not Given (Out of Stock in Hospital ): diphenoxylate-atropine2 tabs PO once jw7 05:17 Drug: Ketorolac IVP 15 mg IVP once Route: IVP; Site: right antecubital; jw7 06:28 Follow up: Response: No adverse reaction; Marked relief of symptoms jw7 06:10 Drug: Loperamide PO 4 mg PO once Route: PO; jw7 07:09 Follow up: Response: No adverse reaction jw7 06:47 Drug: metoCLOPramide IVP 10 mg IVP once; over 1 to 2 minutes Route: IVP; Site: right jw7 antecubital; 07:09 Follow up: Response: No adverse reaction jw7 Disposition Summary: 08/20/23 06:47 Discharge Ordered Notes: Location: Home sp4 Problem: new sp4 Symptoms: have improved sp4 Condition: Stable sp4 Diagnosis - Diarrhea, unspecified sp4 - Acute gastroenteritis, sp4 Followup: sp4 - With: Private Physician - When: 7 - 10 days - Reason: Recheck today's complaints Discharge Instructions: - Discharge Summary Sheet sp4 - Clear Liquid Diet, Adult, [id number] sp4 Forms: - Patient Portal Instructions sp4 Prescriptions: - ondansetron 4 mg Oral Tablet,disintegrating - take 1 tablet ORAL route every 6 hours for 4 days PRN nausea; 30 tablet; sp4 Refills: 0, Product Selection Permitted - Lomotil 2.5-0.025 mg Oral tablet - take 1 tablet ORAL route every 6 hours As needed PRN diarrhea; 30 tablet; sp4 Refills: 0, Product Selection Permitted Signatures: Dispatcher [employer] Jaspal Palmer RN RN rv Haylie Lux RN RN jw7 Suraj Babin MD MD sp4 Corrections: (The following items were deleted from the chart) 04:34 04:33 Allergies: No Known Allergies; rv rv 05:09 05:01 C-REACTIVE PROTEIN+C.LAB.BRZ ordered. EDMS EDMS
[2023-08-21 11:13] VITALS: BP 131/93; TEMP 97.9; O2SAT 99
== END ==
LOC: ER 04:22
DX: K52.9 Noninfective gastroenteritis and colitis, unspecified (principal); Z11.52 Encounter for screening for COVID-19; I10 Essential (primary) hypertension; Z88.5 Allergy status to narcotic agent
CPT/HCPCS: 85025; 81001; 36415; 83690; 80053; 86140; 87804 ×2; 87811; J2765; J2405; J7030